=== PATIENT | female | born 1945 | race Caucasian/White ===

== ENCOUNTER 2021-12-28 10:05 | Inpatient (IN) | payer MEDICARE ==
[2021-12-28] MEDS ORDERED: DEXAMETHASONE SOD PHOSPHATE 10 MG/ML 1 ML VIAL IVP STA (10:16)
[2021-12-28] MEDS ORDERED: SODIUM CHLORIDE 0.9% 1,000 ML IV STA (10:17)
[2021-12-28] MEDS ORDERED: BENZONATATE 100 MG CAP PO STA (10:22)
--- NOTE | 2021-12-28 10:24 | ED ---
SOB HPI - General Chief Complaint: Shortness of Breath Stated Complaint: Covid+, ALEX Time Seen by Provider: 12/28/21 10:09 Source: patient, EMS, RN notes reviewed Mode of arrival: EMS Limitations: no limitations - History of Present Illness Initial Comments: This is a 76-year-old female who presents to the emergency department for difficulty breathing. Patient states that she tested positive for COVID at home yesterday. She went to urgent care this morning, and they retested her and also found her to be positive. She has felt ill for the last 2 days, with difficulty breathing, congestion, diarrhea, and fatigue. She does have a history of asthma and has been using her rescue inhaler with little to no relief. She has not struggled with asthma this bad in many years. Symptoms in terms of coughing and difficulty breathing are worse when laying down at night. EMS did give her a Duoneb treatment on route. Denies any fevers, chills, sore throat, palpitations, abdominal pain, nausea, vomiting, diarrhea, back pain, or headaches. MD Complaint: shortness of breath, cough Onset/Timin -: days(s) Known History Of: asthma Treatments Prior to Arrival: bronchodilator - Related Data Home Medications Medication Instructions Recorded Confirmed Cholecalciferol [Vitamin D3 (25 50 mcg PO DAILY 12/28/21 12/28/21 Mcg = 1000 Iu)] Fluticasone Nasal [place] [Flonase 1 spray EA NOSTRIL DAILY 12/28/21 12/28/21 Nasal [place]] Pantoprazole Sodium [Protonix] 40 mg PO DAILY 12/28/21 12/28/21 Pravastatin Sodium [Pravachol] 20 mg PO HS 12/28/21 12/28/21 Sertraline HCl [Zoloft] 50 mg PO DAILY 12/28/21 12/28/21 amLODIPine [Norvasc] 10 mg PO DAILY 12/28/21 12/28/21 hydroCHLOROthiazide [Hydrodiuril] 25 mg PO DAILY 12/28/21 12/28/21 lisinopriL [Prinivil] 10 mg PO DAILY 12/28/21 12/28/21 Allergies Allergy/AdvReac Type Severity Reaction Status Date / Time codeine Allergy Rash/Hives Verified 12/28/21 14:48 Review of Systems ROS Statement: Those systems with pertinent positive or pertinent negative responses have been documented in the HPI. ROS Other: All systems not noted in ROS Statement are negative. Past Medical History Past Medical History: Asthma, Hypertension History of Any Multi-Drug Resistant Organisms: None Reported Past Surgical History: Cholecystectomy, Tonsillectomy, Tubal Ligation Past Psychological History: No Psychological Hx Reported, Anxiety Smoking Status: Never smoker Past Alcohol Use History: None Reported Past Drug Use History: None Reported General Exam Limitations: no limitations General appearance: alert, anxious Head exam: Present: atraumatic, normocephalic, normal inspection Neck exam: Present: normal inspection. Absent: tenderness, meningismus, lymphadenopathy Respiratory exam: Present: decreased breath sounds, prolonged expiratory, other (Labored) Cardiovascular Exam: Present: normal rhythm, tachycardia, normal heart sounds. Absent: systolic murmur, diastolic murmur, rubs, gallop, clicks GI/Abdominal exam: Present: soft, normal bowel sounds. Absent: distended, tenderness, guarding, rebound, rigid Neurological exam: Present: alert, oriented X3, CN II-XII intact Psychiatric exam: Present: normal affect, normal mood Skin exam: Present: warm, dry, intact, normal color. Absent: rash Course Vital Signs 12/28/21 12/28/21 12/28/21 10:06 11:16 11:23 Temperature 98.3 F 99.3 F Pulse Rate 107 H Respiratory 15 20 Rate Blood Pressure 110/56 O2 Sat by Pulse 96 Oximetry 12/28/21 12/28/21 12/28/21 11:26 11:30 12:00 Temperature Pulse Rate 73 73 75 Respiratory 17 14 15 Rate Blood Pressure 110/56 135/76 147/67 O2 Sat by Pulse 97 95 96 Oximetry 12/28/21 12/28/21 12/28/21 13:59 14:09 14:19 Temperature Pulse Rate 70 72 70 Respiratory 18 Rate Blood Pressure 124/71 O2 Sat by Pulse 95 Oximetry Medical Decision Making - Medical Decision Making This is a 76-year-old female who presents to the emergency department for difficulty breathing. Chest x-ray obtained revealing no acute cardiopulmonary process. She was given IV fluids, Decadron, and Tessalon Perles. Her temperature was rechecked and found to be slightly elevated at 99.7F, she was subsequently given a dose of Tylenol. Her d-dimer is mildly elevated, however when this is corrected for her age, it is considered to be within normal limits and no CTA of the chest is indicated. Lab work was otherwise nonactionable. Influenza testing is negative. Patient was given an additional DuoNeb in the emergency department. Patient states that this helped for a couple of minutes, and then her breathing worsened again. While her vital signs have remained fairly stable, she is working very hard to breathe and the breathing is very labored. She also gets out of breath when she tries to speak. Discussed with the patient admission versus discharge home. Patient requests admission for further management of the breathing. Will admit patient to medicine for an asthma exacerbation secondary to COVID-19 with regular breathing treatments and steroids. This case was discussed in detail with the attending ED physician. Presentation, findings, and treatment plan discussed in detail as well. - Lab Data Result diagrams: 12/28/21 10:23 12/28/21 10:23 Lab Results 12/28/21 12/28/21 12/28/21 Range/Units 10:23 10:23 10:23 WBC 4.7 (3.8-10.6) k/uL RBC 5.29 (3.80-5.40) m/uL Hgb 14.7 (11.4-16.0) gm/dL Hct 44.4 (34.0-46.0) % MCV 84.0 (80.0-100.0) fL MCH 27.8 (25.0-35.0) pg MCHC 33.1 (31.0-37.0) g/dL RDW 13.8 (11.5-15.5) % Plt Count 139 L (150-450) k/uL MPV 9.1 Neutrophils % (Manual) 65 % Lymphocytes % (Manual) 18 % Monocytes % (Manual) 16 % Eosinophils % (Manual) 1 % Neutrophils # (Manual) 3.06 (1.3-7.7) k/uL Lymphocytes # (Manual) 0.85 L (1.0-4.8) k/uL Monocytes # (Manual) 0.75 (0-1.0) k/uL Eosinophils # (Manual) 0.05 (0-0.7) k/uL Nucleated RBCs 0 (0-0) /100 WBC Manual Slide Review Performed PT 10.5 (9.0-12.0) sec INR 1.0 (<1.2) APTT 25.1 (22.0-30.0) sec D-Dimer 0.61 H (<0.60) mg/L FEU Sodium 135 L (137-145) mmol/L Potassium 3.9 (3.5-5.1) mmol/L Chloride 102 (98-107) mmol/L Carbon Dioxide 22 (22-30) mmol/L Anion Gap 11 mmol/L BUN 11 (7-17) mg/dL Creatinine 0.68 (0.52-1.04) mg/dL Est GFR (CKD-EPI)AfAm >90 (>60 ml/min/1.73 sqM) Est GFR (CKD-EPI)NonAf 86 (>60 ml/min/1.73 sqM) Glucose 122 H (74-99) mg/dL Plasma Lactic Acid [place] (0.7-2.0) mmol/L Calcium 8.9 (8.4-10.2) mg/dL Total Bilirubin 0.4 (0.2-1.3) mg/dL AST 33 (14-36) U/L ALT 19 (4-34) U/L Alkaline Phosphatase 87 (38-126) U/L Troponin I (0.000-0.034) ng/mL NT-Pro-B Natriuret Pep pg/mL Total Protein 6.5 (6.3-8.2) g/dL Albumin 4.0 (3.5-5.0) g/dL Influenza Type A RNA (Not Detectd) Influenza Type B (PCR) (Not Detectd) 12/28/21 12/28/21 12/28/21 Range/Units 10:23 10:23 10:23 WBC (3.8-10.6) k/uL RBC (3.80-5.40) m/uL Hgb (11.4-16.0) gm/dL Hct (34.0-46.0) % MCV (80.0-100.0) fL MCH (25.0-35.0) pg MCHC (31.0-37.0) g/dL RDW (11.5-15.5) % Plt Count (150-450) k/uL MPV Neutrophils % (Manual) % Lymphocytes % (Manual) % Monocytes % (Manual) % Eosinophils % (Manual) % Neutrophils # (Manual) (1.3-7.7) k/uL Lymphocytes # (Manual) (1.0-4.8) k/uL Monocytes # (Manual) (0-1.0) k/uL Eosinophils # (Manual) (0-0.7) k/uL Nucleated RBCs (0-0) /100 WBC Manual Slide Review PT (9.0-12.0) sec INR (<1.2) APTT (22.0-30.0) sec D-Dimer (<0.60) mg/L FEU Sodium (137-145) mmol/L Potassium (3.5-5.1) mmol/L Chloride (98-107) mmol/L Carbon Dioxide (22-30) mmol/L Anion Gap mmol/L BUN (7-17) mg/dL Creatinine (0.52-1.04) mg/dL Est GFR (CKD-EPI)AfAm (>60 ml/min/1.73 sqM) Est GFR (CKD-EPI)NonAf (>60 ml/min/1.73 sqM) Glucose (74-99) mg/dL Plasma Lactic Acid [place] 1.2 (0.7-2.0) mmol/L Calcium (8.4-10.2) mg/dL Total Bilirubin (0.2-1.3) mg/dL AST (14-36) U/L ALT (4-34) U/L Alkaline Phosphatase (38-126) U/L Troponin I <0.012 (0.000-0.034) ng/mL NT-Pro-B Natriuret Pep 66 pg/mL Total Protein (6.3-8.2) g/dL Albumin (3.5-5.0) g/dL Influenza Type A RNA (Not Detectd) Influenza Type B (PCR) (Not Detectd) 12/28/21 Range/Units 10:23 WBC (3.8-10.6) k/uL RBC (3.80-5.40) m/uL Hgb (11.4-16.0) gm/dL Hct (34.0-46.0) % MCV (80.0-100.0) fL MCH (25.0-35.0) pg MCHC (31.0-37.0) g/dL RDW (11.5-15.5) % Plt Count (150-450) k/uL MPV Neutrophils % (Manual) % Lymphocytes % (Manual) % Monocytes % (Manual) % Eosinophils % (Manual) % Neutrophils # (Manual) (1.3-7.7) k/uL Lymphocytes # (Manual) (1.0-4.8) k/uL Monocytes # (Manual) (0-1.0) k/uL Eosinophils # (Manual) (0-0.7) k/uL Nucleated RBCs (0-0) /100 WBC Manual Slide Review PT (9.0-12.0) sec INR (<1.2) APTT (22.0-30.0) sec D-Dimer (<0.60) mg/L FEU Sodium (137-145) mmol/L Potassium (3.5-5.1) mmol/L Chloride (98-107) mmol/L Carbon Dioxide (22-30) mmol/L Anion Gap mmol/L BUN (7-17) mg/dL Creatinine (0.52-1.04) mg/dL Est GFR (CKD-EPI)AfAm (>60 ml/min/1.73 sqM) Est GFR (CKD-EPI)NonAf (>60 ml/min/1.73 sqM) Glucose (74-99) mg/dL Plasma Lactic Acid [place] (0.7-2.0) mmol/L Calcium (8.4-10.2) mg/dL Total Bilirubin (0.2-1.3) mg/dL AST (14-36) U/L ALT (4-34) U/L Alkaline Phosphatase (38-126) U/L Troponin I (0.000-0.034) ng/mL NT-Pro-B Natriuret Pep pg/mL Total Protein (6.3-8.2) g/dL Albumin (3.5-5.0) g/dL Influenza Type A RNA Not Detected (Not Detectd) Influenza Type B (PCR) Not Detected (Not Detectd) - EKG Data EKG Comments: Sinus tachycardia, left axis deviation, ventricular rate 103 bpm, WI interval 166 ms, QRS duration 71 ms, QTC 382 ms. - Radiology Data Radiology results: report reviewed, image reviewed Disposition Clinical Impression: Asthma exacerbation, COVID-19 Disposition: ADMITTED IP TO THIS HOSP
[2021-12-28 10:55] LABS: HCT 44.4 % (34.0-46.0); HGB 14.7 gm/dL (11.4-16.0); MCH 27.8 pg (25.0-35.0); MCHC 33.1 g/dL (31.0-37.0); Mean Platelet Volume 9.1; Platelet Count 139 k/uL (150-450); RBC 5.29 m/uL (3.80-5.40); RDW 13.8 % (11.5-15.5); WBC 4.7 k/uL (3.8-10.6)
--- NOTE | 2021-12-28 11:05 | XR ---
EXAMINATION TYPE: XR chest 2V DATE OF EXAM: 12/28/2021 COMPARISON: NONE HISTORY: Difficulty in breathing. TECHNIQUE: Frontal and lateral views of the chest are obtained. FINDINGS: Bilateral mild chronic parenchymal changes but present bilaterally. There is no suspicious focal air space opacity, pleural effusion, or pneumothorax seen. The cardiac silhouette size is with in normal limits. Retrocardiac opacity suspicious for small moderate size hiatal hernia is noted. Cho lecystectomy clips are seen. The osseous structures are intact. IMPRESSION: No acute cardiopulmonary process.
[2021-12-28 11:11] LABS: Partial Thromboplastin Time 25.1 sec (22.0-30.0); Prothrombin Time 10.5 sec (9.0-12.0)
[2021-12-28 11:12] LABS: ALT 19 U/L (4-34); AST 33 U/L (14-36); African American GFR (CKD) >90 (>60 ml/min/1.73 sqM); Alkaline Phosphatase 87 U/L (38-126); Anion Gap 11 mmol/L; Blood Urea Nitrogen 11 mg/dL (7-17); Calcium 8.9 mg/dL (8.4-10.2); Carbon Dioxide 22 mmol/L (22-30); Chloride 102 mmol/L (98-107); Glucose 122 mg/dL (74-99); Non-African American GFR(CKD) 86 (>60 ml/min/1.73 sqM); Potassium 3.9 mmol/L (3.5-5.1); Sodium 135 mmol/L (137-145); Total Bilirubin 0.4 mg/dL (0.2-1.3); Total Protein 6.5 g/dL (6.3-8.2)
[2021-12-28] MEDS ORDERED: ACETAMINOPHEN TAB 325 MG TAB PO STA (11:20)
[2021-12-28 11:26] LABS: Eosinophils # (M) 0.05 k/uL (0-0.7); Lymphocytes # (M) 0.85 k/uL (1.0-4.8); Monocytes # (M) 0.75 k/uL (0-1.0); Neutrophils # (M) 3.06 k/uL (1.3-7.7); Neutrophils % (M) 65 %; Nucleated Red Blood Cells 0 /100 WBC (0-0); Total Cells Counted 100
[2021-12-28] MEDS ORDERED: IPRATROPIUM-ALBUTEROL 3 ML NEB INHALATION STA (11:30)
[2021-12-28] MEDS ORDERED: KETOROLAC 15 MG/ML 1 ML VIAL IVP PRN (15:01)
[2021-12-28] MEDS ORDERED: ONDANSETRON 4 MG/2 ML VIAL IVP PRN (15:01)
[2021-12-28] MEDS ORDERED: NALOXONE 0.4 MG/ML 1 ML VIAL IV PRN (15:01)
[2021-12-28] MEDS ORDERED: IBUPROFEN 400 MG TAB PO PRN (15:01)
[2021-12-28] MEDS ORDERED: ACETAMINOPHEN TAB 325 MG TAB PO PRN (15:01)
[2021-12-28] MEDS: SERTRALINE 50 MG TAB PO SCH (18:33)
[2021-12-28] MEDS: PRAVASTATIN SODIUM 20 MG TAB PO SCH (20:48)
[2021-12-29] MEDS ORDERED: DEXTROSE 50% SYRINGE 50 ML IVP PRN ×4 (02:53→07:13)
[2021-12-29] MEDS ORDERED: IPRATROPIUM-ALBUTEROL 3 ML NEB INHALATION PRN (03:04)
--- NOTE | 2021-12-29 03:11 | P.HPIM ---
History of Present Illness This is a pleasant 76 years old female with past medical history of hypertension and asthma. Patient says she has history of asthma for the past 20 years. Presents because of worsening dyspnea over the last 2 days associated with c oughing and white phlegm No chest pain, abdominal pain or vomiting No urinary complaints, no headache, weakness or numbness She denies smoking, alcohol or illicit tracts Patient states she's been tested positive for covid yesterday at her home Vitals show asymptomatic bradycardia during sleep. Heart rate drops to 45. Afebrile Labs show an unremarkable CBC, INR, BMP and liver enzymes. Troponin is negative. ProBNP is low. Influenza is negative. D-dimer 0.61 which is adjusted for age it will be within the reference range and not elevated. EKG showing sinus tachycardia at [address]-T abnormality. Chest x-ray: No acute process. In the emergency room patient received dexamethasone and, steroids and breathing treatment. Review of Systems Review of systems CONSTITUTIONAL: No fever, no malaise, no fatigue. HEENT: No recent visual problems or hearing problems. Denied any sore throat. CARDIOVASCULAR: No orthopnea, PND, no palpitations, no syncope. PULMONARY: No chest wall tenderness, no hemoptysis. GASTROINTESTINAL: No diarrhea, no nausea, no vomiting, no abdominal pain. Normoactive bowel sounds. NEUROLOGICAL: No headaches, no weakness, no numbness. HEMATOLOGICAL: Denies any bleeding or petechiae. GENITOURINARY: Denies any burning micturition, frequency, or urgency. MUSCULOSKELETAL/RHEUMATOLOGICAL: Denies any joint pain, swelling, or any muscle pain. ENDOCRINE: Denies any polyuria or polydipsia. Past Medical History Past Medical History: Asthma, Hypertension History of Any Multi-Drug Resistant Organisms: None Reported Past Surgical History: Cholecystectomy, Tonsillectomy, Tubal Ligation Past Psychological History: No Psychological Hx Reported, Anxiety Smoking Status: Never smoker Past Alcohol Use History: None Reported Past Drug Use History: None Reported Medications and Allergies Home Medications Medication Instructions Recorded Confirmed Type Cholecalciferol [Vitamin D3 (25 50 mcg PO DAILY 12/28/21 12/28/21 History Mcg = 1000 Iu)] Fluticasone Nasal [place] [Flonase 1 spray EA NOSTRIL DAILY 12/28/21 12/28/21 History Nasal [place]] Pantoprazole Sodium [Protonix] 40 mg PO DAILY 12/28/21 12/28/21 History Pravastatin Sodium [Pravachol] 20 mg PO HS 12/28/21 12/28/21 History Sertraline HCl [Zoloft] 50 mg PO DAILY 12/28/21 12/28/21 History amLODIPine [Norvasc] 10 mg PO DAILY 12/28/21 12/28/21 History hydroCHLOROthiazide [Hydrodiuril] 25 mg PO DAILY 12/28/21 12/28/21 History lisinopriL [Prinivil] 10 mg PO DAILY 12/28/21 12/28/21 History Allergies Allergy/AdvReac Type Severity Reaction Status Date / Time codeine Allergy Rash/Hives Verified 12/28/21 17:13 Physical Exam Vitals: Vital Signs Temp Pulse Resp BP Pulse Ox 12/28/21 16:00 71 20 126/66 92 L 12/28/21 15:30 75 21 111/57 92 L 12/28/21 15:00 74 18 124/71 12/28/21 14:30 73 18 124/71 96 12/28/21 14:19 70 12/28/21 14:09 72 12/28/21 14:00 69 20 130/73 94 L 12/28/21 13:59 70 18 124/71 95 12/28/21 13:30 70 16 117/73 94 L 12/28/21 13:00 72 17 127/64 96 12/28/21 12:30 72 18 132/69 90 L 12/28/21 12:00 75 15 147/67 96 12/28/21 11:30 73 14 135/76 95 12/28/21 11:26 73 17 110/56 97 12/28/21 11:23 99.3 F 12/28/21 11:16 20 12/28/21 10:06 98.3 F 107 H 15 110/56 96 Intake and Output 12/28/21 12/28/21 12/28/21 06:59 14:59 22:59 Other: Weight 74.843 kg GENERAL: The patient is alert and oriented x3, not in any acute distress. Well developed, well nourished. HEENT: Pupils are round and equally reacting to light. EOMI. No scleral icterus. No conjunctival pallor. Normocephalic, atraumatic. No pharyngeal erythema. No thyromegaly. CARDIOVASCULAR: S1 and S2 present. No murmurs, rubs, or gallops. -PULMONARY: Chest is clear to auscultation, bilateral expiratory wheezing . No crackles. ABDOMEN: Soft, nontender, nondistended, normoactive bowel sounds. No palpable organomegaly. MUSCULOSKELETAL: No joint swelling or deformity. EXTREMITIES: No cyanosis, clubbing, or pedal edema. NEUROLOGICAL: Gross neurological examination did not reveal any focal deficits. SKIN: No rashes. no petechiae. Results CBC & Chem 7: 12/28/21 10:23 12/28/21 10:23 Labs: Abnormal Lab Results - Last 24 Hours (Table) 12/28/21 12/28/21 12/28/21 Range/Units 10: 10: 10:23 Plt Count 139 L (150-450) k/uL Lymphocytes # (Manual) 0.85 L (1.0-4.8) k/uL D-Dimer 0.61 H (<0.60) mg/L FEU Sodium 135 L (137-145) mmol/L Glucose 122 H (74-99) mg/dL Assessment and Plan Assessment: Acute asthma exacerbation Possible Covid infection per patient Asymptomatic bradycardia Hypertension Obesity with BMI of 31.2. Plan: Check Covid swab Check inflammatory markers Consult pulmonary services. Bronchodilators Check TSH Labs and medication were reviewed.. Continue same treatment. Continue with symptomatic treatment. Resume home medication. Monitor lytes and vitals. DVT and GI prophylaxis. Further recommendations as per clinical course of the patient DVT prophylaxis: Subcutaneous ( GI Prophylaxis: Pepcid PT/OT: Pending Prognosis is guarded
[2021-12-29] MEDS: PANTOPRAZOLE 40 MG TABLET PO SCH (06:44)
[2021-12-29] MEDS: INSULIN ASPART (NovoLOG) 100 UNIT/ML VIAL SQ SCH ×5 (06:45→22:31)
[2021-12-29] MEDS ORDERED: methylPREDNISolone SOD SUCCI 40 MG/ML 1 ML VIAL IV SCH (08:00)
[2021-12-29 08:59] LABS: Glucose,Whole Blood 108 mg/dL (70-110)
[2021-12-29] MEDS ORDERED: CHOLECALCIFEROL 25 MCG (1000 IU) TABLET PO SCH (09:00)
[2021-12-29] MEDS: hydroCHLOROthiazide 25 MG TAB PO SCH (09:43)
[2021-12-29] MEDS: FLUTICASONE 50MCG/SPRAY NASAL 16GM EA NOSTRIL SCH (09:43)
[2021-12-29] MEDS: SERTRALINE 50 MG TAB PO SCH (09:43)
[2021-12-29] MEDS: amLODIPine 10 MG TAB PO SCH (09:43)
[2021-12-29] MEDS: lisinopriL 10 MG TAB PO SCH (09:43)
[2021-12-29 11:03] LABS: African American GFR (CKD) 104.1 (60.0-200.0); Anion Gap 7.6 mmol/L (10.00-18.00); BUN/Creat Ratio 20.33 Ratio (12.00-20.00); Blood Urea Nitrogen 12.2 mg/dL (9.0-27.0); C Reactive Protein 0.4 mg/dL (0.00-0.80); Calcium 8.8 mg/dL (8.7-10.3); Carbon Dioxide 25.4 mmol/L (20.0-27.5); Non-African American GFR(CKD) 89.8 (60.0-200.0); Potassium 4.1 mmol/L (3.5-5.5)
[2021-12-29 11:52] LABS: Glucose,Whole Blood 113 mg/dL (70-110)
--- NOTE | 2021-12-29 12:03 | P.CNPUL ---
History of Present Illness Consult date: 12/29/21 Reason for consult: dyspnea, asthma History of present illness: 76-year-old female patient, known history of asthma, tested positive for Covid 19. The patient presented to the hospital because of worsening shortness of breath of 2 days' duration addition to some cough and congestion. No chest pain. No nausea or vomiting or abdominal pain. No altered mentation. No headaches. The patient's generalized body aches symptoms. She has been also feeling fatigued and tired. The vitals were all stable at the time of admission. The patient was afebrile. Blood work was done in emergency. D- dimer was at 0.61. Influenza screen was negative. The rest of the blood work including CBC and complete metabolic profile were negative. Coagulation profile was normal. The cardiac enzymes are also negative. The chest x-ray showed no acute cardiopulmonary process. The patient has a pulse ox of 97% on room air, 99% liters of oxygen by nasal cannula. She is relatively bradycardic with a heart rate of 46-54, asymptomatic. She is normotensive. She was given Decadron in the emergency department. Note that she had asthma as comorbid conditions in addition to hypertension. She is a lifetime nonsmoker. The patient has no maintenance respiratory medication for asthma. She uses Ventolin on an as- needed basis. She has been vaccinated 2 for Covid 19 and she has not received any of the booster shots. Review of Systems Constitutional: Reports fatigue, Reports weakness Eyes: denies as per HPI, denies blurred vision, denies bulging eye, denies decreased vision, denies diplopia, denies discharge, denies dry eye, denies irritation, denies itching, denies pain, denies photophobia, denies loss of peripheral vision, denies loss of vision, denies tunnel vision/blind spots Ears: deny: decreased hearing, ear discharge, earache, tinnitus Ears, nose, mouth and throat: Reports as per HPI Breasts: absent: as per HPI, change in shape, gynecomastia, masses, nipple discharge, pain, skin changes, swelling Cardiovascular: Reports decreased exercise tolerance, Reports dyspnea on exertion Respiratory: Reports congestion, Reports cough, Reports dyspnea Gastrointestinal: Reports as per HPI, Reports loss of appetite Genitourinary: Reports as per HPI Menstruation: Reports as per HPI Musculoskeletal: Reports as per HPI Musculoskeletal: absent: ankle pain, ankle stiffness, ankle swelling Integumentary: Reports as per HPI Neurological: Reports as per HPI Psychiatric: Reports as per HPI Endocrine: Reports as per HPI Hematologic/Lymphatic: Reports as per HPI Allergic/Immunologic: Reports as per HPI Past Medical History Past Medical History: Asthma, Hyperlipidemia, Hypertension History of Any Multi-Drug Resistant Organisms: None Reported Past Surgical History: Cholecystectomy, Tonsillectomy, Tubal Ligation Past Psychological History: No Psychological Hx Reported, Anxiety Smoking Status: Never smoker Past Alcohol Use History: None Reported Past Drug Use History: None Reported Medications and Allergies Home Medications Medication Instructions Recorded Confirmed Type Cholecalciferol [Vitamin D3 (25 50 mcg PO DAILY 12/28/21 12/28/21 History Mcg = 1000 Iu)] Fluticasone Nasal [place] [Flonase 1 spray EA NOSTRIL DAILY 12/28/21 12/28/21 History Nasal [place]] Pantoprazole Sodium [Protonix] 40 mg PO DAILY 12/28/21 12/28/21 History Pravastatin Sodium [Pravachol] 20 mg PO HS 12/28/21 12/28/21 History Sertraline HCl [Zoloft] 50 mg PO DAILY 12/28/21 12/28/21 History amLODIPine [Norvasc] 10 mg PO DAILY 12/28/21 12/28/21 History hydroCHLOROthiazide [Hydrodiuril] 25 mg PO DAILY 12/28/21 12/28/21 History lisinopriL [Prinivil] 10 mg PO DAILY 12/28/21 12/28/21 History Allergies Allergy/AdvReac Type Severity Reaction Status Date / Time codeine Allergy Rash/Hives Verified 12/28/21 17:13 Physical Exam Vitals: Vital Signs Temp Pulse Pulse Resp BP BP Pulse Ox 12/29/21 10:00 97.6 F 54 L 15 129/65 97 12/29/21 08:00 97.6 F 46 L 17 129/65 99 12/29/21 06:46 97.7 F 47 L 17 124/57 96 12/29/21 01:47 97.5 F L 51 L 16 106/57 98 12/28/21 22:36 97.7 F 45 L 16 109/65 93 L 12/28/21 19:31 97.5 F L 46 L 16 129/69 100 12/28/21 17:29 97.6 F 12/28/21 16:59 57 L 15 122/72 97 12/28/21 16:00 71 20 126/66 92 L 12/28/21 15:30 75 21 111/57 92 L 12/28/21 15:00 74 18 124/71 12/28/21 14:30 73 18 124/71 96 12/28/21 14:19 70 12/28/21 14:09 72 12/28/21 14:00 69 20 130/73 94 L 12/28/21 13:59 70 18 124/71 95 12/28/21 13:30 70 16 117/73 94 L 12/28/21 13:00 72 17 127/64 96 12/28/21 12:30 72 18 132/69 90 L 12/28/21 12:00 75 15 147/67 96 Intake and Output 12/28/21 12/29/21 12/29/21 22:59 06:59 14:59 Intake Total 120 480 Balance 120 480 Intake: Oral 120 480 Other: # Voids 1 4 # Bowel Movements 1 Weight 74.843 kg The patient appeared well nourished and normally developed. Vital signs as documented. Head exam is unremarkable. No scleral icterus or corneal arcus noted. Neck is without jugular venous distension, thyromegaly, or carotid bruits. Carotid upstrokes are brisk bilaterally. Lungs are diminished bilaterally along with diminished breath on the lung bases both anteriorly and posteriorly and there is prolongation of the exhalation phase of breathing and diffuse exhalation wheezing. Cardiac exam reveals the PMI to be normally sized and situated. Rhythm is regular. First and second heart sounds normal. No murmurs, rubs or gallops. Abdominal exam reveals normal bowel sounds, no masses, no organomegaly and no aortic enlargement. Extremities are nonedematous and bot h femoral and pedal pulses are normal.Examination of the skin revealed no evidence of significant rashes, suspicious appearing nevi or other concerning lesions.Neurologically, the patient is awake and alert and the patient does not have any focal neurological deficit. Cranial nerves are essentially intact. Results - Laboratory Findings CBC and BMP: 12/28/21 10:23 12/29/21 07:12 PT/INR, D-dimer PT 10.5 sec (9.0-12.0) 12/28/21 10:23 INR 1.0 (<1.2) 12/28/21 10:23 D-Dimer 0.61 mg/L FEU (<0.60) H 12/28/21 10:23 Abnormal lab findings: Abnormal Labs 12/28/21 12/28/21 12/28/21 10:23 10:23 10:23 Plt Count 139 L Lymphocytes # (Manual) 0.85 L D-Dimer 0.61 H Sodium 135 L Anion Gap BUN/Creatinine Ratio Glucose 122 H POC Glucose (mg/dL) TSH Coronavirus (PCR) 12/29/21 12/29/21 12/29/21 05:40 07:12 11:47 Plt Count Lymphocytes # (Manual) D-Dimer Sodium Anion Gap 7.60 L BUN/Creatinine Ratio 20.33 H Glucose POC Glucose (mg/dL) 113 H TSH 0.270 L Coronavirus (PCR) Detected A - Diagnostic Findings Chest x-ray: image reviewed Assessment and Plan Plan: Acute asthma exacerbation with secondary shortness of breath. The patient is actively bronchospastic and wheezy and her shortness of breath is essentially related to asthma exacerbation. The trigger for her asthma exacerbations the Covid 19 infection Acute Covid 19 infection, no clear indication for pneumonia. The patient's oxygenation is within normal limits. She has received 2 shots of vaccine which, [employer] and she did not receive any subsequent boosters. Symptom onset was around 2 days ago Shortness of breath secondary to above Cough secondary to above Hypertension Hyperlipidemia Sinus bradycardia, asymptomatic Plan Put the patient on albuterol HFA 2 puffs 4 times a day and Symbicort maintenance 2 puffs twice a day The patient on IV Solu-Medrol 60 mg every 6 hours optimizer asthma exacerbation Check inflammatory markers regarding the Covid 19 infection including LDH and CRP Check d-dimer is was low right Moderate oxygenation, currently on room air oxygen with a pulse ox of 97% Resume all medications Vitamin C and vitamin D and zinc Lovenox portably prophylaxis on heparin subcu portably prophylaxis Echocardiogram regarding the underlying cardiac rhythm We'll continue to follow
[2021-12-29] MEDS: ASCORBIC ACID 500 MG TAB PO SCH (12:31)
[2021-12-29] MEDS: ZINC SULFATE 220 MG CAP PO SCH (12:31)
[2021-12-29] MEDS ORDERED: ERGOCALCIFEROL 1,250 MCG (50,000 IU) CAPSULE PO SCH (13:00)
--- NOTE | 2021-12-29 13:10 | P.CRDCN ---
History of Present Illness History of present illness: HISTORY OF PRESENTING ILLNESS This is a pleasant 76-year-old female past medical history significant for hypertension, asthma, dyslipidemia, mild non-obstructive coronary artery disease (per patient cardiac cath this year in [facility]). She followed with Dr. Altaf Walls in [place], [place]. She lived in [place] for 13 years recently moved back to [place]. We have been asked to see in consultation for bradycardia. Patient presented to the hospital on 12/28/2021 with complaints of worsening shortness of breath, cough, congestion. She tested positive for COVID-19 at home. Symptoms started about 2 days ago. She also has been having generalized body aches, fatigue. She was vaccinated x 2, no booster shots. She denies any chest pain, lightheadedness, dizziness, palpitations, syncope or near syncope. She denies any history of [place], Stroke, seizure, diabetes. She is a non-smoker. Patient's vital signs documented with HR 46-50s, at bedside patient HR 56-60s, no EKG at this time besides the one on admission that revealed sinus tachycardia. She has been weaned to room air. She states this year in [place] she had an episode of bradycardia and was admitted for 24 hours for telemetry monitoring, she states her HR were in the 20s and they improved. All workup was normal the patient states. She also said this year in [place] she had episode of chest discomfort, she presented initially to her PCP which was Dr. Bharti Ayon and recommended evaluation in the ER. She ultimately underwent a cardiac catheterization which she was told was relatively normal with minor blockages, no stenting performed. DIAGNOSTICS * EKG on admission revealed sinus tachycardia, heart rate 103, T wave inversion in lead V2 * Chest xray no acute cardiopulmonary process, no heart failure or pneumonia noted. * Laboratory reviewed, platelets 139, d-dimer 0.6, sodium 138, potassium 4.1, BUN 0.2, serum creatinine 0.6, troponin negative, proBNP 66, covid 19 positive, TSH 0.27, free T4 1.04 * Current home cardiac medications include amlodipine 10 mg daily, pravastatin 20 mg nightly, hydrochlorothiazide 25 mg daily, lisinopril 10 mg daily REVIEW OF SYSTEMS At the time of my exam: CONSTITUTIONAL: Denies fever or chills.+generalized aches and fatigue CARDIOVASCULAR: Denies chest pain, +shortness of breath,Denies orthopnea, PND or palpitations. RESPIRATORY: +cough. GASTROINTESTINAL: Denies abdominal pain, diarrhea, constipation, nausea or vomiting. MUSCULOSKELETAL: Denies myalgias. NEUROLOGIC: Denies numbness, tingling, headacbe or weakness. ENDOCRINE: Denies fatigue, weight change, polydipsia or polyurina. GENITOURINARY: Denies burning, hematuria or urgency with micturation. HEMATOLOGIC: Denies history of anemia or bleeding. PHYSICAL EXAMINATION Blood pressure 129/65, heart rate 54, afebrile, oxygen saturation is 97% on room air CONSTITUTIONAL: No apparent distress. HEENT: Head is normocephalic. Pupils are equal, round. Sclerae anicteric. Mucous membranes of the mouth are moist. No JVD. No carotid bruit. CHEST EXAMINATION: Lungs are clear to auscultation. No chest wall tenderness is noted on palpation or with deep breathing. HEART EXAMINATION: Regular rate and rhythm. S1, S2 heard. No murmurs, gallops or rub. ABDOMEN: Soft, nontender. Positive bowel sounds. EXTREMITIES: 2+ peripheral pulses, no lower extremity edema and no calf tenderness. NEUROLOGIC EXAMINATION: Patient is awake, alert and oriented x3. ASSESSMENT Sinus bradycardia, asymptomatic Covid-19 infection Asthma exacerbation Shortness of breath Mild non-obstructive coronary artery disease (per patient cardiac cath this year in [facility]) Hypertension Dyslipidemia PLAN Place patient on cardiac telemetry Obtain EKG Continue home antihypertensive medications Obtain 2D echocardiogram and doppler study to assess cardiac structure and function. Will try to obtain records from [place]. Further recommendations based on clinical course Nurse practitioner note has been reviewed by physician. Signing provider agrees with the documented findings, assessment, and plan of care. Past Medical History Past Medical History: Asthma, Hypertension History of Any Multi-Drug Resistant Organisms: None Reported Past Surgical History: Cholecystectomy, Tonsillectomy, Tubal Ligation Past Psychological History: No Psychological Hx Reported, Anxiety Smoking Status: Never smoker Past Alcohol Use History: None Reported Past Drug Use History: None Reported Medications and Allergies Home Medications Medication Instructions Recorded Confirmed Type Cholecalciferol [Vitamin D3 (25 50 mcg PO DAILY 12/28/21 12/28/21 History Mcg = 1000 Iu)] Fluticasone Nasal [place] [Flonase 1 spray EA NOSTRIL DAILY 12/28/21 12/28/21 History Nasal [place]] Pantoprazole Sodium [Protonix] 40 mg PO DAILY 12/28/21 12/28/21 History Pravastatin Sodium [Pravachol] 20 mg PO HS 12/28/21 12/28/21 History Sertraline HCl [Zoloft] 50 mg PO DAILY 12/28/21 12/28/21 History amLODIPine [Norvasc] 10 mg PO DAILY 12/28/21 12/28/21 History hydroCHLOROthiazide [Hydrodiuril] 25 mg PO DAILY 12/28/21 12/28/21 History lisinopriL [Prinivil] 10 mg PO DAILY 12/28/21 12/28/21 History Allergies Allergy/AdvReac Type Severity Reaction Status Date / Time codeine Allergy Rash/Hives Verified 12/28/21 17:13 Physical Exam Vitals: Vital Signs Temp Pulse Pulse Resp BP BP Pulse Ox 12/29/21 10:00 97.6 F 54 L 15 129/65 97 12/29/21 08:00 97.6 F 46 L 17 129/65 99 12/29/21 06:46 97.7 F 47 L 17 124/57 96 12/29/21 01:47 97.5 F L 51 L 16 106/57 98 12/28/21 22:36 97.7 F 45 L 16 109/65 93 L 12/28/21 19:31 97.5 F L 46 L 16 129/69 100 12/28/21 17:29 97.6 F 12/28/21 16:59 57 L 15 122/72 97 12/28/21 16:00 71 20 126/66 92 L 12/28/21 15:30 75 21 111/57 92 L 12/28/21 15:00 74 18 124/71 12/28/21 14:30 73 18 124/71 96 12/28/21 14:19 70 12/28/21 14:09 72 12/28/21 14:00 69 20 130/73 94 L 12/28/21 13:59 70 18 124/71 95 12/28/21 13:30 70 16 117/73 94 L 12/28/21 13:00 72 17 127/64 96 12/28/21 12:30 72 18 132/69 90 L Intake and Output 12/28/21 12/29/21 12/29/21 22:59 06:59 14:59 Intake Total 120 480 Balance 120 480 Intake: Oral 120 480 Other: # Voids 1 4 # Bowel Movements 1 Weight 74.843 kg Results 12/28/21 10:23 12/29/21 07:12 Cardiac Enzymes 12/29/21 Range/Units 07:12 Lactate Dehydrogenase 145 (120-246) U/L Comprehensive Metabolic Panel 12/29/21 Range/Units 07:12 Sodium 138 (135-145) mmol/L Potassium 4.1 (3.5-5.5) mmol/L Chloride 105 (96-109) mmol/L Carbon Dioxide 25.4 (20.0-27.5) mmol/L BUN 12.2 (9.0-27.0) mg/dL Creatinine 0.6 (0.6-1.5) mg/dL Glucose 104 (70-110) mg/dL Calcium 8.8 (8.7-10.3) mg/dL Current Medications Generic Name Dose Route Start Last Admin Trade Name Freq PRN Reason Stop Dose Admin Acetaminophen 650 mg 12/28/21 15:01 Acetaminophen Tab 325 Mg Tab PO Q6HR PRN Mild Pain or Fever > 100.5 Albuterol Sulfate 1 puff 12/29/21 16:00 Albuterol Hfa Inhaler INHALATION RT-QID EMELI Amlodipine Besylate 10 mg 12/29/21 09:00 12/29/21 09:43 Amlodipine 10 Mg Tab PO 10 mg DAILY EMELI Administration Budesonide/Formoterol Fumarate 2 puff 12/29/21 20:00 Symbicort 160-4.5 Mcg Inhaler INHALATION RT-BID EMELI Cholecalciferol 50 mcg 12/29/21 09:00 12/29/21 09:43 Cholecalciferol 25 Mcg (1000 Iu) Tablet PO 50 mcg DAILY EMELI Administration Dextrose/Water 25 ml 12/29/21 02:53 Dextrose 50% Syringe 50 Ml IVP PER PROTOCOL PRN Hypoglycemia Protocol Dextrose/Water 50 ml 12/29/21 02:53 Dextrose 50% Syringe 50 Ml IVP PER PROTOCOL PRN Hypoglycemia Protocol Dextrose/Water 25 ml 12/29/21 07:13 Dextrose 50% Syringe 50 Ml IVP PER PROTOCOL PRN Hypoglycemia Protocol Dextrose/Water 50 ml 12/29/21 07:13 Dextrose 50% Syringe 50 Ml IVP PER PROTOCOL PRN Hypoglycemia Protocol Fluticasone Propionate 1 spray 12/29/21 09:00 12/29/21 09:43 Fluticasone 50mcg/[place] Nasal 16gm EA NOSTRIL 1 spray DAILY EMELI Administration Hydrochlorothiazide 25 mg 12/29/21 09:00 12/29/21 09:43 Hydrochlorothiazide 25 Mg Tab PO 25 mg DAILY EMELI Administration Ibuprofen 400 mg 12/28/21 15:01 12/28/21 20:48 Ibuprofen 400 Mg Tab PO 400 mg Q6HR PRN Administration Mild Pain or Fever > 100.5 Insulin Aspart 0 unit 12/29/21 07:30 12/29/21 12:01 Insulin Aspart (Novolog) 100 Unit/Ml Vial SQ Not Given ACHS [facility] Protocol Ketorolac Tromethamine 15 mg 12/28/21 15:01 12/28/21 16:55 Ketorolac 15 Mg/Ml 1 Ml Vial IVP 12/31/21 15:02 15 mg Q6HR PRN Administration Moderate Pain (Scale 4 to 6) Lisinopril 10 mg 12/29/21 09:00 12/29/21 09:43 Lisinopril 10 Mg Tab PO 10 mg DAILY EMELI Administration Methylprednisolone Sodium Succinate 60 mg 12/29/21 18:00 Methylprednisolone Sod Succi 40 Mg/Ml 1 Ml Vial IV Q6HR EMELI Naloxone HCl 0.2 mg 12/28/21 15:01 Naloxone 0.4 Mg/Ml 1 Ml Vial IV Q2M PRN Opioid Reversal Ondansetron HCl 4 mg 12/28/21 15:01 Ondansetron 4 Mg/2 Ml Vial IVP Q8HR PRN Nausea And Vomiting Pantoprazole Sodium 40 mg 12/29/21 07:30 12/29/21 06:44 Pantoprazole 40 Mg Tablet PO 40 mg [id number] EMELI Administration Pravastatin Sodium 20 mg 12/28/21 21:00 12/28/21 20:48 Pravastatin Sodium 20 Mg Tab PO 20 mg HS EMELI Administration Sertraline HCl 50 mg 12/28/21 18:15 12/29/21 09:43 Sertraline 50 Mg Tab PO 50 mg DAILY EMELI Administration Intake and Output 12/28/21 12/29/21 12/29/21 22:59 06:59 14:59 Intake Total 120 480 Balance 120 480 Intake: Oral 120 480 Other: # Voids 1 4 # Bowel Movements 1 Weight 74.843 kg 12/28/21 10:23 12/29/21 07:12
[2021-12-29] MEDS: ALBUTEROL HFA INHALER INHALATION SCH ×2 (15:52→20:17)
[2021-12-29 16:52] LABS: Glucose,Whole Blood 154 mg/dL (70-110)
--- NOTE | 2021-12-29 17:00 | CA ---
Transthoracic Echo Report Name: Carlene Yuan Age: 76 Gender: F : 1945 Exam Date: 12/29/2021 13:51 Exam Location: [place] [facility] Ht (in): Wt (lb): Ordering Physician: Janel Dias Attending/Referring Phys: Retread Technician Roro Nolna, JOAO Procedure CPT: Indications: LV function, bradycardia Cardiac Hx: Pt is COVID POSITIVE. Technical Quality: Contrast 1: Total Dose (mL): Contrast 2: N/A Total Dose (mL): MEASUREMENTS (Male / Female) Normal Values 2D ECHO LV Diastolic Diameter PLAX 4.2 cm 4.2 - 5.9 / 3.9 - 5.3 cm LV Systolic Diameter PLAX 3.6 cm IVS Diastolic Thickness 1.1 cm 0.6 - 1.0 / 0.6 - 0.9 cm LVPW Diastolic Thickness 1.1 cm 0.6 - 1.0 / 0.6 - 0.9 cm LV Relative Wall Thickness 0.5 RV Internal Dim ED PLAX 3.1 cm LA Systolic Diameter LX 3.1 cm 3.0 - 4.0 / 2.7 - 3.8 cm DOPPLER TR Peak Velocity 283.2 cm/s TR Peak Gradient 32.1 mmHg Right Ventricular Systolic Press 37.1 mmHg FINDINGS Left Ventricle Mildly increased septal wall thickness. Mildly increased posterior wall thickness. Left ventricular ejection fraction is estimated at 50-55%. Right Ventricle Normal right ventricular size and function. Mild pulmonary hypertension. Right Atrium Normal right atrial size. Left Atrium Normal left atrial size. Mitral Valve Structurally normal mitral valve. Mild mitral regurgitation. Aortic Valve Trileaflet aortic valve. Tricuspid Valve Structurally normal tricuspid valve. Mild tricuspid regurgitation. Pulmonic Valve Structurally normal pulmonic valve. Pericardium Normal pericardium. Aorta Normal size aortic root and proximal ascending aorta. CONCLUSIONS Normal LV systolic function Mild mitral regurgitation Previewed by: Dr. Tello Gustafson MD (Electronically Signed) Final Date: 29 December 2021 17:00
[2021-12-29] MEDS: methylPREDNISolone SOD SUCCI 125 MG/2 ML VIAL IV SCH ×2 (18:01→23:01)
[2021-12-29] MEDS: SYMBICORT 160-4.5 MCG INHALER INHALATION SCH (20:17)
[2021-12-29 20:39] LABS: Glucose,Whole Blood 179 mg/dL (70-110)
[2021-12-29] MEDS: PRAVASTATIN SODIUM 20 MG TAB PO SCH (22:31)
--- NOTE | 2021-12-29 23:29 | P.PN ---
Subjective This is a pleasant 76 years old female with past medical history of hypertension and asthma. Patient says she has history of asthma for the past 20 years. Presents because of worsening dyspnea over the last 2 days associated with coughing and white phlegm No chest pain, abdominal pain or vomiting No urinary complaints, no headache, weakness or numbness She denies smoking, alcohol or illicit tracts Patient states she's been tested positive for covid yesterday at her home Vitals show asymptomatic bradycardia during sleep. Heart rate drops to 45. Afebrile Labs show an unremarkable CBC, INR, BMP and liver enzymes. Troponin is negative. ProBNP is low. Influenza is negative. D-dimer 0.61 which is adjusted for age it will be within the reference range and not elevated. EKG showing sinus tachycardia at [address]-T abnormality. Chest x-ray: No acute process. In the emergency room patient received dexamethasone and, steroids and breathing treatment. 12/29/2021 Patient presents [place] improvement, while she is on IV Solu-Medrol 60 mg. She has minimal cough and no chest pain Pulmonary team on the case, We will check inflammatory markers for Covid infection, no evidence of pneumonia. She has asymptomatic bradycardia with heart rate 40 to 50s, cardiology was consulted. Echocardiogram showed ejection fraction 50-55% Objective - Vital Signs Vital signs: Vital Signs Temp 97.6 F 12/29/21 10:00 Pulse 54 L 12/29/21 10:00 Resp 15 12/29/21 10:00 BP 129/65 12/29/21 10:00 Pulse Ox 97 12/29/21 10:00 FiO2 Intake & Output 12/28/21 12/29/21 12/29/21 18:59 06:59 18:59 Intake Total 600 Balance 600 Weight 74.843 kg Intake: Oral 600 Other: # Voids 4 # Bowel Movements 1 - Exam GENERAL: The patient is alert and oriented x3, not in any acute distress. Well developed, well nourished. HEENT: Pupils are round and equally reacting to light. EOMI. No scleral icterus. No conjunctival pallor. Normocephalic, atraumatic. No pharyngeal erythema. No thyromegaly. CARDIOVASCULAR: S1 and S2 present. No murmurs, rubs, or gallops. -PULMONARY: Chest is clear to auscultation, bilateral scattered wheezing or crackles. ABDOMEN: Soft, nontender, nondistended, normoactive bowel sounds. No palpable organomegaly. MUSCULOSKELETAL: No joint swelling or deformity. EXTREMITIES: No cyanosis, clubbing, or pedal edema. NEUROLOGICAL: Gross neurological examination did not reveal any focal deficits. SKIN: No rashes. no petechiae. - Labs CBC & Chem 7: 12/28/21 10:23 12/29/21 07:12 Labs: Abnormal Lab Results - Last 24 Hours (Table) 12/29/21 12/29/21 Range/Units 05:40 07:12 Anion Gap 7.60 L (10.00-18.00) mmol/L BUN/Creatinine Ratio 20.33 H (12.00-20.00) Ratio TSH 0.270 L (0.350-5.500) uIU/mL Coronavirus (PCR) Detected A (Not Detectd) Assessment and Plan Assessment: Acute asthma exacerbation, could be triggered by Covid infection Acute Covid infection with no pneumonia Asymptomatic bradycardia Hypertension Obesity with BMI of 31.2. Plan: Continue with IV Solu-Medrol 60 mg Check inflammatory markers Consult pulmonary services. Bronchodilators Consult fire assistant for bradycardia Labs and medication were reviewed.. Continue same treatment. Continue with symptomatic treatment. Resume home medication. Monitor lytes and vitals. DVT and GI prophylaxis. Further recommendations as per clinical course of the patient DVT prophylaxis: Subcutaneous GI Prophylaxis: Px PT/OT: Pending Prognosis is guarded
[2021-12-30 06:16] LABS: Glucose,Whole Blood 128 mg/dL (70-110)
[2021-12-30] MEDS: INSULIN ASPART (NovoLOG) 100 UNIT/ML VIAL SQ SCH ×2 (06:19→12:21)
[2021-12-30] MEDS: methylPREDNISolone SOD SUCCI 125 MG/2 ML VIAL IV SCH (06:23)
[2021-12-30] MEDS: PANTOPRAZOLE 40 MG TABLET PO SCH (06:25)
[2021-12-30 08:20] VITALS: RESP 17
[2021-12-30] MEDS: SYMBICORT 160-4.5 MCG INHALER INHALATION SCH (08:30)
[2021-12-30] MEDS: ALBUTEROL HFA INHALER INHALATION SCH ×2 (08:30→12:45)
[2021-12-30] MEDS ORDERED: HEPARIN SODIUM,PORCINE/PF 5,000 UNIT/0.5 ML SYRINGE SQ SCH (09:00)
[2021-12-30] MEDS ORDERED: FAMOTIDINE 20 MG/2 ML VIAL IV SCH (09:00)
[2021-12-30] MEDS: amLODIPine 10 MG TAB PO SCH (09:13)
[2021-12-30] MEDS: lisinopriL 10 MG TAB PO SCH (09:13)
[2021-12-30] MEDS: hydroCHLOROthiazide 25 MG TAB PO SCH (09:13)
[2021-12-30] MEDS: FLUTICASONE 50MCG/SPRAY NASAL 16GM EA NOSTRIL SCH (09:13)
[2021-12-30] MEDS: SERTRALINE 50 MG TAB PO SCH (09:13)
[2021-12-30] MEDS: ZINC SULFATE 220 MG CAP PO SCH (09:13)
[2021-12-30] MEDS: ASCORBIC ACID 500 MG TAB PO SCH (09:13)
[2021-12-30 10:14] VITALS: BP 122/76; PULSE 56; TEMP 97.6
[2021-12-30 11:12] LABS: Glucose,Whole Blood 135 mg/dL (70-110)
--- NOTE | 2021-12-30 11:20 | P.PN ---
Subjective This is a pleasant 76-year-old female past medical history significant for hypertension, asthma, dyslipidemia, mild non-obstructive coronary artery disease (per patient cardiac cath this year in [facility]). She followed with Dr. Altaf Walls in [place], [place]. She lived in [place] for 13 years recently moved back to [place]. We have been asked to see in consultation for bradycardia. Patient presented to the hospital on 12/28/2021 with complaints of worsening shortness of breath, cough, congestion. She tested positive for COVID-19 at home. Symptoms started about 2 days ago. She also has been having generalized body aches, fatigue. She was vaccinated x 2, no booster shots. She states this year in [place] she had an episode of bradycardia and was admitted for 24 hours for telemetry monitoring, she states her HR were in the 20s and they improved. All workup was normal the patient states. She also said this year in [place] she had episode of chest discomfort, she presented initially to her PCP which was Dr. Bharti Ayon and recommended evaluation in the ER. She ultimately underwent a cardiac catheterization which she was told was relatively normal with minor blockages, no stenting performed. 12/30/2021 Patient seen and examined at bedside, no acute distress. She states that her symptoms have significantly improved. She denies any chest pain or shortness of breath. Continues to have a cough. Denies any fever, chills, bodyaches. Her vital signs are stable. Telemetry reviewed patient maintaining sinus mechanism with heart rate in the 50s60s. EKG revealed sinus bradycardia with heart rate 56. Records still pending. Echocardiogram revealed EF 5055 percent, mild mitral regurgitation PHYSICAL EXAMINATION Vitals reviewed CONSTITUTIONAL: No apparent distress. HEENT: Head is normocephalic. Neck supple No JVD. CHEST EXAMINATION: Lungs are clear to auscultation. No chest wall tenderness is noted on palpation or with deep breathing. HEART EXAMINATION: Regular rate and rhythm. S1, S2 heard. No murmurs, gallops or rub. ABDOMEN: Soft, nontender. Positive bowel sounds. EXTREMITIES: 2+ peripheral pulses, no lower extremity edema and no calf tenderness. NEUROLOGIC EXAMINATION: Patient is awake, alert and oriented x3. ASSESSMENT Sinus bradycardia, asymptomatic Covid-19 infection Asthma exacerbation Shortness of breath Mild non-obstructive coronary artery disease (per patient cardiac cath this year in [facility]) Hypertension Dyslipidemia PLAN From a cardiology perspective, no further inpatient workup Continue home antihypertensive medications Discharge for discharge per primary and clearance of other consultants Recommend follow up outpatient with cardiology Nurse practitioner note has been reviewed by physician. Signing provider agrees with the documented findings, assessment, and plan of care. Objective - Vital Signs Vital signs: Vital Signs Temp 97.5 F L 12/30/21 02:00 Pulse 60 12/30/21 02:00 Resp 16 12/30/21 02:00 BP 123/76 12/30/21 02:00 Pulse Ox 99 12/30/21 02:00 FiO2 Intake & Output 12/29/21 12/30/21 12/30/21 18:59 06:59 18:59 Output Total 300 Balance -300 Output: Urine 300 Other: # Voids 2 - Labs CBC & Chem 7: 12/28/21 10:23 12/29/21 07:12 Labs: Abnormal Lab Results - Last 24 Hours (Table) 12/29/21 12/29/21 12/29/21 Range/Units 07:12 07:12 11:47 Anion Gap 7.60 L (10.00-18.00) mmol/L BUN/Creatinine Ratio 20.33 H (12.00-20.00) Ratio POC Glucose (mg/dL) 113 H (70-110) mg/dL Hemoglobin A1c 6.2 H (0.0-6.0) % TSH 0.270 L (0.350-5.500) uIU/mL 12/29/21 12/29/21 12/30/21 Range/Units 16:50 20:37 06:11 Anion Gap (10.00-18.00) mmol/L BUN/Creatinine Ratio (12.00-20.00) Ratio POC Glucose (mg/dL) 154 H 179 H 128 H (70-110) mg/dL Hemoglobin A1c (0.0-6.0) % TSH (0.350-5.500) uIU/mL
--- NOTE | 2021-12-30 13:41 | P.PN ---
Subjective Progress Note Date: 12/30/21 Principal diagnosis: Shortness of breath. 76-year-old female patient, known history of asthma, tested positive for Covid 19. The patient presented to the hospital because of worsening shortness of breath of 2 days' duration addition to some cough and congestion. No chest pain. No nausea or vomiting or abdominal pain. No altered mentation. No headaches. The patient's generalized body aches symptoms. She has been also feeling fatigued and tired. The vitals were all stable at the time of admission. The patient was afebrile. Blood work was done in emergency. D-dimer was at 0.61. Influenza screen was negative. The rest of the blood work including CBC and complete metabolic profile were negative. Coagulation profile was normal. The cardiac enzymes are also negative. The chest x-ray showed no acute cardiopulmonary process. The patient has a pulse ox of 97% on room air, 99% liters of oxygen by nasal cannula. She is relatively bradycardic with a heart rate of 46-54, asymptomatic. She is normotensive. She was given Decadron in the emergency department. Note that she had asthma as comorbid conditions in addition to hypertension. She is a lifetime nonsmoker. The patient has no maintenance respiratory medication for asthma. She uses Ventolin on an as- needed basis. She has been vaccinated 2 for Covid 19 and she has not received any of the booster shots. Progress note dated 12/30/2021. This is a patient who was seen by my partner yesterday in consultation. She seen again today in room 483. Currently, she is on room air. She is not gettin g any IV fluids. She did test positive for coronavirus. Her chest x-ray is normal. She is wondering about possible discharge today. She denies any shortness of breath, cough, wheezing, or phlegm production, and she generally feels well. The only lab today is a glucose of 135. Chest x-ray is normal. Objective - Vital Signs Vital signs: Vital Signs Temp 97.6 F 12/30/21 10:00 Pulse 56 L 12/30/21 10:00 Resp 17 12/30/21 10:00 BP 122/76 12/30/21 10:00 Pulse Ox 95 12/30/21 10:00 FiO2 Intake & Output 12/29/21 12/30/21 12/30/21 18:59 06:59 18:59 Output Total 300 Balance -300 Output: Urine 300 Other: # Voids 2 - Exam No acute distress, oriented 3. No conversational dyspnea, use of accessory muscles, or audible wheezing. HEENT examination is grossly unremarkable. Neck supple. Full range of motion. No adenopathy thyromegaly or neck vein distention. Cardiovascular examination reveals regular rhythm rate. S1-S2 normal. No S3 or S4. No discernible murmur noted. Heart rate 56 bpm. Lungs reveal mostly clear breath sounds. Minimal rhonchi. No distinct wheezes or crackles. Breath sounds equal. Room air saturation is 96%. Abdomen soft bowel sounds are heard. No masses or tenderness. Extremities are intact. No cyanosis clubbing or edema. Skin is without rash or lesion. Neurologic examination is brief but nonfocal. - Labs CBC & Chem 7: 12/28/21 10:23 12/29/21 07:12 Labs: Abnormal Lab Results - Last 24 Hours (Table) 12/29/21 12/29/21 12/29/21 Range/Units 07:12 16:50 20:37 POC Glucose (mg/dL) 154 H 179 H (70-110) mg/dL Hemoglobin A1c 6.2 H (0.0-6.0) % 12/30/21 12/30/21 Range/Units 06:11 11:11 POC Glucose (mg/dL) 128 H 135 H (70-110) mg/dL Hemoglobin A1c (0.0-6.0) % Assessment and Plan Assessment: Acute asthma exacerbation, improved. Acute coronavirus infection, without coronavirus associated pneumonia. Cough and shortness of breath, secondary to asthma exacerbation. Hypertension. Hyperlipidemia. Asymptomatic sinus bradycardia. Plan: Plan dated 12/31/2023. The patient's on appropriate medications. The patient is stable could be considered for possible discharge. We'll leave that up to the primary service. No additional recommendations are made. Clinically she looks well. She is on room air. Not receiving any IV fluids. There is no audible wheezing, use of accessory muscles, or conversational dyspnea. Labs, x-rays, and medications are reviewed. Time with Patient: Less than 30
== END 2021-12-30 14:58 | disposition home or self-care (01) | DRG 178 ==
LOC: EC 10:05 → 4SSUR 15:01
PROVIDERS: ADMIT Internal Medicine; ATTEND Internal Medicine
DX: U07.1 COVID-19 (principal); J45.901 Unspecified asthma with (acute) exacerbation; I25.10 Atherosclerotic heart disease of native coronary artery without angina pectoris; I10 Essential (primary) hypertension; E78.5 Hyperlipidemia, unspecified; R00.1 Bradycardia, unspecified; R79.1 Abnormal coagulation profile; E66.9 Obesity, unspecified; Z68.31 Body mass index [BMI] 31.0-31.9, adult; Z88.5 Allergy status to narcotic agent; Z79.899 Other long term (current) drug therapy
CPT/HCPCS: 36415; 71046; 80048; 80053; 83036; 83605; 83615; 83880; 84439; 84443; 84484; 85025; 85379; 85610; 85730; 86140; 87502; 87634; 87635; 93005; 93306; 94640; 96361; 96374; 96375; 99285

== ENCOUNTER → 2022-07-19 | Outpatient (CLI) | payer MEDICARE ==
--- NOTE | 2022-07-19 11:51 | US ---
EXAMINATION TYPE: US Aorta Screening DATE OF EXAM: 07/19/2022 COMPARISON: NONE CLINICAL INDICATION: Female, 76 years old with history of Z136 ENCOUNTER FOR CARDIO DISORDER; Screeni ng TECHNIQUE: Multiple sonographic images of the abdominal aorta are obtained. FINDINGS: EXAM MEASUREMENTS: Abdominal Aorta: Proximal: 2.1 x1.8 cm Mid: 1.5 in AP dimension. Transverse measurement obscured by bowel gas. Distal: 1.4 x 1.2 cm Bifurcation: 1.3 and 1.5 on the right and left sides, respectively. IMPRESSION: Borderline ectasia left common iliac artery at 1.5 cm. Otherwise, allowing for some limited detailed visualization of the mid abdominal aorta, no sonographic evidence for AAA.
--- NOTE | 2022-07-19 17:55 | BD ---
EXAMINATION TYPE: Axial Bone Density DATE OF EXAM: 07/19/2022 CLINICAL HISTORY: 76 years old Female. ICD-10 CODE: Z780 ASYMPTOMATIC [place] Height: 176.1 Weight: 61.5 FRAX RISK QUESTIONS: Alcohol (3 or more units per day): no Family History (Parent hip fracture): no Glucocorticoids (More than 3mos): no History of Fracture in Adulthood: foot Secondary Osteoporosis: 1. Type 1 Diabetes: no 2. Hyperthyroidism:no 3. Menopause before 45: no 4. Malnutrition: no 5. Chronic liver disease: no Rheumatoid Arthritis: no Current Tobacco Use: no RISK FACTORS HISTORY OF: Hip Fracture (Right/Left): no Spine Fracture: no History of Wrist Fracture: no Surgery to Spine/Hip(right/left)/Wrist (right/left): no Family History of Osteoporosis: no Active: no Diet low in dairy products/other sources of calcium: no Postmenopausal woman: yes Take estrogen and/or progesterone medications: no Lost more than 2 inches in height since high school: no Frequent falls: yes Poor Health: no Hyperparathyroidism: no Adrenal Insufficiency: no MEDICATIONS: Prednisone or other steroids: no Thyroid Medications: no Osteoporosis Medications: no Additional Medications: BP Meds, Cholesterol Meds, Reflux Meds, Anxiety Meds Additional History: EXAM MEASUREMENTS: Bone mineral densitometry was performed using the Thumb Reading System. Bone mineral density as measured about the Lumbar spine is: ----- L1-L4(G/cm2): 1.175 T Score Values are as follows: ----- L1: -0.1 ----- L2: 0.0 ----- L3: 0.2 ----- L4: -0.4 ----- L1-L4: 0.0 Z Score Values are as follows: ----- L1: 1.2 ----- L2: 1.2 ----- L3: 1.5 ----- L4: 0.9 ----- L1-L4: 1.2 Baseline Study Bone mineral density about the R hip (g/cm2): 0.946 Bone mineral density about the L hip (g/cm2): 0.945 T Score values are as follows: -----R Neck: -1.5 -----L Neck: -0.9 -----R Total: -0.5 -----L Total: -0.5 Z Score values are as follows: -----R Neck: 0.1 -----L Neck: 0.7 -----R Total: 0.9 -----L Total: 0.9 Baseline Study FRAX%s: The graph provided illustrates a 16.0% chance for a major osteoporotic fx and a 2.8% chance f or the hips probability for fx in 10 years time. IMPRESSION: Osteopenia (T Score between -2.5 and -1). There is slightly increased risk of fracture and the patient may be considered for treatment. Re-Screen 2-5 years. NOTE: T-SCORE=SD OF THE YOUNG ADULT MEAN.
== END | disposition home or self-care (01) ==
LOC: RADUSWWP 07:44
PROVIDERS: ATTEND Family Medicine
DX: Z12.31 Encounter for screening mammogram for malignant neoplasm of breast (principal); Z13.6 Encounter for screening for cardiovascular disorders; M85.89 Other specified disorders of bone density and structure, multiple sites; Z78.0 Asymptomatic menopausal state
CPT/HCPCS: 76706; 77063; 77067; 77080

== ENCOUNTER → 2022-08-25 | Outpatient (CLI) | payer MEDICARE ==
--- NOTE | 2022-08-25 11:40 | CT ---
EXAMINATION TYPE: CT right knee - RADHA Protocol CT DLP: 622 mGycm, Automated exposure control for dose reduction was used. DATE OF EXAM: 08/25/2022 11:15 AM COMPARISON: None CLINICAL INDICATION:Female, 77 years old with history of M25.561 pain R knee;, Right RADHA knee. TECHNIQUE: Axial images were obtained of the right knee . Additional coronal and sagittal reformatte d images and soft tissue and bone window were obtained for review. . Contrast used: mL of None Oral contrast used: None FINDINGS: Visualized portions of the pelvis demonstrate a few scattered colonic diverticula. There is mild oste ophyte formation of the hip acetabulum bilaterally. Evaluation of the knee demonstrates [id number] articulation of the patellofemoral joint most pronou nced in the lateral aspect. Additionally there is osteophyte formation of the femoral condyles and ti bial plateau with joint space tearing worse in the medial compartment. Findings have a similar appearance on the contralateral left knee which is only partially visualized. . There is some deformity with osseous outpouching along the medial femoral condyle. A fabella is prese nt. Visualized portions of the ankles are without acute fracture. Post surgical changes involving the fir st metatarsal and proximal phalanx of the first digit noted. Hardware is grossly intact. IMPRESSION: 1. End-stage right knee osteoarthrosis. No evidence of fracture. 2. Moderate severe left knee osteoarthrosis. No evidence of fracture. 3. Mild bilateral hip osteoarthrosis. 4. Colonic diverticulosis.
== END | disposition home or self-care (01) ==
LOC: RADCTMAIN 10:45
PROVIDERS: ATTEND Orthopaedic Surgery
DX: M17.0 Bilateral primary osteoarthritis of knee (principal); M16.0 Bilateral primary osteoarthritis of hip; K57.30 Diverticulosis of large intestine without perforation or abscess without bleeding

== ENCOUNTER 2022-09-08 08:07 | Day surgery (SDC) | payer MEDICARE ==
--- NOTE | 2022-09-08 07:40 | P.GSHP ---
History of Present Illness H&P Date: 09/08/22 CHIEF COMPLAINT: Colon screen HISTORY OF PRESENT ILLNESS: The patient is a 77-year-old female who presents for colon screen. Lower endoscopy was offered for further evaluation and management. PAST MEDICAL HISTORY: Please see list. PAST SURGICAL HISTORY: Please see list. MEDICATIONS: Please see list. ALLERGIES: Please see list. SOCIAL HISTORY: No illicit drug use FAMILY HISTORY: No reports of Crohn disease or ulcerative colitis. REVIEW OF ORGAN SYSTEMS: CONSTITUTIONAL: No reports of fevers or chills. PHYSICAL EXAM: VITAL SIGNS: Stable GENERAL: Well-developed pleasant in no acute distress. HEENT: No scleral icterus. Extraocular movements grossly intact. Moist buccal mucosa. NECK: Supple without lymphadenopathy. CHEST: Unlabored respirations. Equal bilateral excursions. CARDIOVASCULAR: Regular rate and rhythm. Distal 2+ pulses. ABDOMEN: Soft, nontender, nondistended. MUSCULOSKELETAL: No clubbing, cyanosis, or edema. ASSESSMENT: 1. Colon screen. PLAN: 1. Recommend proceeding with a lower endoscopy Past Medical History Past Medical History: Asthma, GERD/Reflux, Hypertension, Osteoarthritis (OA) Additional Past Medical History / Comment(s): hx of polyps History of Any Multi-Drug Resistant Organisms: None Reported Past Surgical History: Cholecystectomy, Tonsillectomy, Tubal Ligation Additional Past Surgical History / Comment(s): colonoscopy,egd Past Anesthesia/Blood Transfusion Reactions: No Reported Reaction Smoking Status: Former smoker, Light tobacco smoker - Past Family History Father Family Medical History: Cancer Brother(s) Family Medical History: Cancer Additional Family Medical History / Comment(s): lung Daughter(s) Additional Family Medical History / Comment(s): hodgkins lymphoma Medications and Allergies Home Medications Medication Instructions Recorded Confirmed Type Fluticasone Nasal [place] [Flonase 1 spray EA NOSTRIL DAILY 12/28/21 09/06/22 Hi story Nasal [place]] Pantoprazole Sodium [Protonix] 40 mg PO DAILY 12/28/21 09/06/22 History Pravastatin Sodium [Pravachol] 20 mg PO HS 12/28/21 09/06/22 History Sertraline HCl [Zoloft] 50 mg PO DAILY 12/28/21 09/06/22 History hydroCHLOROthiazide [Hydrodiuril] 25 mg PO DAILY 12/28/21 09/06/22 History lisinopriL [Prinivil] 10 mg PO DAILY 12/28/21 09/06/22 History Albuterol Inhaler [Ventolin Hfa 2 puff INHALATION RT-QID PRN #1 12/30/21 09/06/22 Rx Inhaler] each Celecoxib [CeleBREX] 200 mg PO DAILY 09/06/22 09/06/22 History Losartan Potassium 50 mg PO DAILY 09/06/22 09/06/22 History Allergies Allergy/AdvReac Type Severity Reaction Status Date / Time codeine Allergy Rash/Hives Verified 09/06/22 12:00
[~2022-09-08 08:07] MED LIST: LACTATED RINGERS 1,000 ML IV SCH
[2022-09-08] MEDS ORDERED: LACTATED RINGERS 1,000 ML IV ONE ×2 (08:35)
[2022-09-08 09:01] VITALS: RESP 16; TEMP 97.7
[2022-09-08] MEDS ORDERED: PROPOFOL 10 MG/ML 20 ML VIAL IV ONE (09:19)
--- NOTE | 2022-09-08 09:46 | P.PCN ---
Date of Procedure: 09/08/22 Description of Procedure: PREOPERATIVE DIAGNOSIS: Personal history of colon polyps Colonoscopy screening POSTOPERATIVE DIAGNOSIS: Tubular adenoma descending colon Tubular adenoma transverse colon Sigmoid diverticulosis Internal hemorrhoids, grade 3 OPERATION: Colonoscopy to the ileocecal valve and appendiceal orifice, cecum Colonoscopy with hot snare polypectomy SURGEON: Carmen Lorenzo MD. ANESTHESIA: MAC. INDICATIONS: The patient is an 77-year-old male who presents personal history of colon po lyps. Last colonoscopy over 5 years. Benefits and risks were described and informed consent was obtained. DESCRIPTION OF PROCEDURE: The patient had undergone GOLYETLY prep. The patient had been brought into the operating room and laid in the left lateral decubitus position. After adequate intravenous sedation, the rectum was examined with 2% lidocaine jelly. The prostate was unremarkable. External hemorrhoids were encountered. The rectal tone was within normal limits. No lesions were palpated in the rectal vault. An Olympus colonoscope was advanced until the cecum, ileocecal valve and ap pendiceal orifice were clearly viewed. The prep was fair. Sigmoid diverticulosis was encountered. Colonic polyps were found and removed. No evidence of focal colitis was found. Retroflexion of the scope demonstrated grade 3 internal hemorrhoids without active bleeding or inflammation. The colon was desufflated. The patient had tolerated the procedure well. Withdrawal time was over 6 minutes. FINDINGS: Aronchick preparation quality scale 3 (1-5) Internal hemorrhoids, grade 3 External hemorrhoids, grade 3. No arteriovenous malformations. Sigmoid diverticulosis Removal of 2 polyps: - Snare polypectomy at descending colon, 8 mm tubulovillous adenoma - Snare polypectomy and proximal colon, 4 mm adenoma No focal colitis. RECOMMENDATIONS: Repeat colonoscopy in 3 years, 2025 Plan - Discharge Summary Discharge Rx Participant: No New Discharge Prescriptions: Continue Pantoprazole Sodium [Protonix] 40 mg PO DAILY Sertraline HCl [Zoloft] 50 mg PO DAILY Pravastatin Sodium [Pravachol] 20 mg PO HS hydroCHLOROthiazide [Hydrodiuril] 25 mg PO DAILY Fluticasone Nasal [place] [Flonase Nasal [place]] 1 spray EA NOSTRIL DAILY lisinopriL [Prinivil] 10 mg PO DAILY Albuterol Inhaler [Ventolin Hfa Inhaler] 2 puff INHALATION RT-QID PRN #1 each PRN Reason: Shortness Of Breath Losartan Potassium 50 mg PO DAILY Celecoxib [CeleBREX] 200 mg PO DAILY Discharge Medication List Fluticasone Nasal [place] [Flonase Nasal [place]] 1 spray EA NOSTRIL DAILY 12/28/21 [History] Pantoprazole Sodium [Protonix] 40 mg PO DAILY 12/28/21 [History] Pravastatin Sodium [Pravachol] 20 mg PO HS 12/28/21 [History] Sertraline HCl [Zoloft] 50 mg PO DAILY 12/28/21 [History] hydroCHLOROthiazide [Hydrodiuril] 25 mg PO DAILY 12/28/21 [History] lisinopriL [Prinivil] 10 mg PO DAILY 12/28/21 [History] Albuterol Inhaler [Ventolin Hfa Inhaler] 2 puff INHALATION RT-QID PRN #1 each 12/30/21 [Rx] Celecoxib [CeleBREX] 200 mg PO DAILY 09/06/22 [History] Losartan Potassium 50 mg PO DAILY 09/06/22 [History] Follow up Appointment(s)/Referral(s): Carmen Lorenzo MD [STAFF PHYSICIAN] - As Needed Patient Instructions/Handouts: *Surgery [facility] - (Anesthesia) Discharge Instructions Outpatient Surgery, Diverticulosis (ED), Colorectal Polyps (GEN), Diverticulosis Diet (GEN) Activity/Diet/Wound Care/Special Instructions: Repeat colonoscopy 3 years, 2025 Discharge Disposition: HOME SELF-CARE
[2022-09-08 09:56] VITALS: PULSE 62
[2022-09-08 10:00] VITALS: BP 100/62
== END 2022-09-08 10:33 | disposition home or self-care (01) ==
LOC: ORWHC2ENDO 08:07
PROVIDERS: ATTEND Surgery Plastic and Reconstructive Surgery
DX: Z12.11 Encounter for screening for malignant neoplasm of colon (principal); D25.0 Submucous leiomyoma of uterus; K57.30 Diverticulosis of large intestine without perforation or abscess without bleeding; K64.2 Third degree hemorrhoids; J45.909 Unspecified asthma, uncomplicated; I10 Essential (primary) hypertension; K21.9 Gastro-esophageal reflux disease without esophagitis; M19.90 Unspecified osteoarthritis, unspecified site; Z86.010 Personal history of colon polyps; Z79.1 Long term (current) use of non-steroidal anti-inflammatories (NSAID); Z79.899 Other long term (current) drug therapy; Z98.51 Tubal ligation status; Z90.49 Acquired absence of other specified parts of digestive tract; Z90.89 Acquired absence of other organs; Z87.891 Personal history of nicotine dependence
CPT/HCPCS: 88305; 45385; J2704

== ENCOUNTER 2022-10-05 11:14 | Observation (INO) | payer MEDICARE ==
[2022-09-27 14:44] VITALS: BMI 32.8
[~2022-10-05 11:14] MED LIST changes: +ACETAMINOPHEN TAB 500 MG TAB PO PRN; +DEXAMETHASONE SOD PHOSPHATE 10 MG/ML 1 ML VIAL IV PRN; +DOCUSATE 100 MG CAP PO PRN; +FAMOTIDINE 20 MG/2 ML VIAL IVP PRN; +KETOROLAC 15 MG/ML 1 ML VIAL IVP PRN; +LIDOCAINE 1% (10MG/ML) FOR IV START INTRADERMA PRN; +ONDANSETRON 4 MG/2 ML VIAL IVP PRN; +ROPIVACAINE/EPI/CLONIDINE/KET 50 ML SYRINGE MISCELLANE PRN; +TRANEXAMIC 1,000 MG/100ML-NACL 1,000 MG in SALINE 1 100ML.BAG IV PRN; +TRANEXAMIC 1,000 MG/100ML-NACL 1,000 MG in SALINE 1 100ML.BAG IVPB PRN; +fentaNYL (PF) 50 MCG/ML 2 ML AMP IV PRN; +oxyCODONE ER 10 MG TAB.ER.12H PO PRN
[2022-10-05] MEDS ORDERED: LACTATED RINGERS 1,000 ML IV ONE ×2 (11:35→13:45)
[2022-10-05] MEDS ORDERED: MIDAZOLAM 2 MG/2 ML VIAL IVP ONE (12:26)
--- NOTE | 2022-10-05 12:45 | P.ANPRN ---
Procedure Note - Anesthesia - Nerve Block Performed Right Maggieck Single Time Out Performed: Yes Date of Procedure: 10/05/22 Procedure Start Time: 12:30 Procedure Stop Time: :31 Location of Patient: PreOp Indication: Acute Post-Operative Pain, Requested by Surgeon Sedation Type: Sedate with meaningful contact maintained Preparation: Sterile Prep Position: Supine Needle Types: Pajunk Needle Gauge: 21 Ultrasound used to visualize needle placement: Yes Ultrasound used to observe medication spread: Yes Resistance on Injection: Normal Image Stored and Saved: Yes Events: Uneventful and Well Tolerated (Ropivacaine 0.5% 25 mL plus dexamethasone 4 mg)
--- NOTE | 2022-10-05 12:45 | P.ANPRN ---
Procedure Note - Anesthesia - Nerve Block Performed Right Adductor Canal Single Time Out Performed: Yes Date of Procedure: 10/05/22 Procedure Start Time: : Procedure Stop Time: Location of Patient: PreOp Indication: Acute Post-Operative Pain, Requested by Surgeon Sedation Type: Sedate with meaningful contact maintained Preparation: Sterile Prep Position: Supine Needle Types: Pajunk Needle Gauge: 21 Ultrasound used to visualize needle placement: Yes Ultrasound used to observe medication spread: Yes Blood Aspirated: No Pain Paresthesia on Injection Noted: No Resistance on Injection: Normal Image Stored and Saved: Yes Events: Uneventful and Well Tolerated (Ropivacaine 0.5% 25 mL plus dexamethasone 4 mg)
[2022-10-05] MEDS ORDERED: PROPOFOL 10 MG/ML 20 ML VIAL IV ONE (13:40)
[2022-10-05] MEDS ORDERED: PHENYLEPHRINE-0.9% NACL SYG 1,000 MCG/10 ML SYRINGE ONE (13:40)
[2022-10-05] MEDS ORDERED: ROPIVACAINE 5 MG/ML 30 ML VIAL ONE (13:40)
[2022-10-05] MEDS ORDERED: fentaNYL (PF) 50 MCG/ML 2 ML AMP ONE (13:40)
[2022-10-05] MEDS ORDERED: SUCCINYLCHOLINE CHLORIDE 200 MG/10 ML VIAL IV ONE (13:40)
[2022-10-05] MEDS ORDERED: ePHEDrine 50 MG/ML 1 ML VIAL ONE (13:40)
[2022-10-05] MEDS ORDERED: GLYCOPYRROLATE 0.2 MG/ML 2 ML VIAL ONE (13:40)
[2022-10-05] MEDS ORDERED: ROCURONIUM 10 MG/ML (5 ML VIAL) IV ONE (13:40)
[2022-10-05] MEDS ORDERED: DEXAMETHASONE SOD PHOSPHATE 4 MG/ML 1 ML VIAL ONE (13:40)
[2022-10-05] MEDS ORDERED: TRANEXAMIC 1,000 MG/100ML-NACL PREMIX BAG ONE (13:40)
[2022-10-05] MEDS ORDERED: LIDOCAINE 2% INJ 20 MG/ML (2 ML VIAL) ONE (13:40)
[2022-10-05] MEDS ORDERED: NEOSTIGMINE 1 MG/ML 10 ML VIAL ONE (13:40)
[2022-10-05] MEDS ORDERED: HYDROmorphone 0.5 MG/0.5 ML SYRINGE IVP PRN ×3 (16:08)
[2022-10-05] MEDS ORDERED: NALOXONE 0.4 MG/ML 1 ML VIAL IV PRN (16:08)
[2022-10-05] MEDS ORDERED: ONDANSETRON 4 MG/2 ML VIAL IVP PRN (16:08)
[2022-10-05] MEDS ORDERED: hydrOXYzine pamoate 25 MG CAP PO PRN (16:08)
--- NOTE | 2022-10-05 16:11 | P.OP ---
Date of Procedure: 10/05/22 Preoperative Diagnosis: 1. Severe right knee osteoarthritis Postoperative Diagnosis: Same Procedure(s) Performed: Right total knee arthroplasty Implants: 1. Holger Triathlon CR Femur Size #2 2. Holger Triathlon [place] Tibial Base Size #2 3. Holger Triathlon CS poly Size #10 4. Holger Triathlon all poly patella, Size #28 Anesthesia: KEENA, regional Surgeon: Víctor Gill Enrobing Machine Feeder #1: Giorgi Rios Estimated Blood Loss (ml): 700 IV fluids (ml): 100 Pathology: none sent Condition: stable Disposition: PACU Indications for Procedure: I met with the patient preoperatively in the office setting and discussed treatment of their symptomatic knee arthritis. They failed a long course of nonsurgical treatment and elected to proceed with an elective total knee replacement. I discussed the potential risks and complications at length and gave them ample time to ask questions. Risks discussed included: risks from anesthesia, superficial site surgical infection, acute and/or chronic perip rosthetic joint infection, delayed wound healing, drainage, wound necrosis, instability, stiffness, stiffness requiring manipulation and/or revision surgery, damage to local blood vessels or nerves, aseptic loosening of the implants, extensor mechanism issues including disruption, patellar maltracking, avascular necrosis etc., continued or worsened knee pain, generalized dissatisfaction with surgical outcome, need for revision surgery, an inability to regain preinjury level of function, DVT, PE, other medical complications, and possibly loss of life or limb. The patient voiced their understanding that while these are the most common complications other less common complications are possible. They provided both their verbal and written consent to go forward with surgery. Description of Procedure: The patient was identified in preoperative holding and the correct operative extremity was verified and marked with a marker. I reviewed the consent form with the patient at length. All of their questions were answered. The patient was given a block by anesthesia. They were then brought back to the operating room. They were transferred onto the operating room table where a general anesthetic, preoperative antibiotics, and tranexamic acid were administered by anesthesia. A tourniquet was applied to the proximal aspect of the operative extremity. The contralateral extremity was padded under the heel and secured to the operating room table with a nonsterile blue towel and tape. The ipsilateral arm was carefully draped across the patient's chest and secured with a pillow and foam. A post was applied over the lateral aspect of the ipsilateral thigh and a bolster was placed under the ipsilateral foot. I verified that the operative extremity was stable and the knee was flexed to 90. The operative extremity was then placed in a leg apodaca, nonsterile drapes were applied, and the extremity was prepped and draped sterilely in the standard sterile fashion. Prior to starting surgery timeout was performed identifying the correct patient, operative extremity, and procedure. The leg was then elevated, exsanguinated with an Esmarch bandage, and the tourniquet was inflated. An anterior midline incision was made sharply with a scalpel. Once I had dissected deep to the superficial fascial layer medial and lateral flaps were elevated. A medial parapatellar arthrotomy was created. Upon opening the knee joint there were diffuse arthritic changes in all 3 compartments. The anterior horn of the medial meniscus were sharply released and a medial release was performed around the posterior medial corner of the knee to facilitate retractor placement. The fat pad was excised with electrocautery. The patella was found to be severely arthritic and a provisional cut was made with a sagittal saw to facilitate mobilization of the extensor mechanism during the procedure. Remnants of the ACL and PCL were then excised from the notch. 4 mm pins were then placed within the incision in the medial distal femur and proximal tibia. Arrays were applied to the pins and I verified they were completely tightened. The knee was then registered with the RoosterBi robot and manipulations in implant position were made to balance the knee and opitmize implant position. Using the Eitan robotic saw all cuts were made in accordance with our plan. After all bony fragments had been removed the cuts were verified with the planar probe. The tibia was then subluxed forward and sized. The knee was brought into flexion and a lamina electrical systems drafter was placed to allow removal of the meniscal remnants both medially and laterally as well as posterior osteophytes. Local anesthetic was then infiltrated around the joint capsule. Trial implants were then placed w ithin the knee. Range of motion and collateral ligament tension was then evaluated. Adjustments in implant size and position were then made accordingly. Once the knee was felt to be appropriately balanced the Eitan pins were removed. The patella was then recut, sized, and punched. A trial patellar button was then placed. With the trial components in place, the patella tracked midline. The femur was then drilled and the trial component removed. The trial tibial component was then appropriately rotated, pinned, and prepared for the keel. All trial components were then removed from the knee. The knee was thoroughly irrigated with pulsatile lavage. Cement was prepared via vacuum mixing in a bowl on the back table. I then hand pressurized cement into the femur and tibia and placed the implants beginning with the tibial base tray and poly liner, femoral component, and finally the patellar button. All extruded cement was removed including from the pin sites. Once the cement had hardened the knee was evaluated one final time with the final polyethylene liner in place. The knee had full extension and flexion and felt stable to varus and valgus stress throughout the arc of motion. The tourniquet was released and with the tourniquet down the patella tracked midline. All bleeders were controlled with electrocautery. The knee was then soaked for 3 minutes with a dilute Betadine soak. The knee was thoroughly irrigated using 3 L of sterile saline and pulsatile lavage. A deep drain was placed. The extensor mechanism was then reapproximated using pop off Vicryl sutures followed by a running barbed suture. The knee was then closed in layers with a 0 strata fix for the deep fascial layer, 2-0 strata fix for the superficial subcutaneous layer and Monocryl and Steri-Strips for the skin. A sterile dressing and drain sponge were applied. I verified that all instrument, sponge, and sharp counts were correct. The patient was then transferred off the operating room table, extubated, and brought to recovery having tolerated the procedure well. Giorgi Rios PA-C was required as a skilled clinic assistant due to the complexity of the procedure for patient positioning, draping, retraction, placement of hardware, and closure of wound. PLAN: The patient can weight-bear as tolerated on the operative extremity. DVT prophylaxis with aspirin 81 mg twice a day based on preoperative risk stratification. Follow-up in the office in 2 weeks for wound check and x-rays of the knee including an AP and lateral.
--- NOTE | 2022-10-05 16:52 | XR ---
EXAMINATION TYPE: XR knee limited RT DATE OF EXAM: 10/05/2022 COMPARISON: NONE HISTORY: 77-year-old female evaluation for postoperative abnormality in the alignment TECHNIQUE: 2 views FINDINGS: Surgical drain in place. Anterior soft tissue swelling with scattered soft tissue air as we ll as intra-articular air related to recent operation. Images show placement of right total knee arth roplasty. No periprosthetic fracture. Alignment grossly anatomic. IMPRESSION: Uncomplicated postoperative appearance right total knee arthroplasty.
[2022-10-05] MEDS: LACTATED RINGERS 1,000 ML IV SCH (17:05)
[2022-10-05] MEDS: ASPIRIN 81 MG PO SCH (20:45)
[2022-10-05] MEDS: SENNOSIDES-DOCUSATE SODIUM 1 EACH TAB PO SCH (20:45)
[2022-10-06] MEDS: LACTATED RINGERS 1,000 ML IV SCH ×2 (02:50→04:56)
[2022-10-06] MEDS: HYDROcodone/APAP 5-325MG 1 EACH TAB PO PRN ×3 (04:52→23:46)
--- NOTE | 2022-10-06 08:26 | P.DS ---
Providers Expected date of discharge: 10/06/22 Attending physician: Víctor Gill Consults: 10/05/22 16:08 Consult Physician Routine Consulting Provider: Richa Hutchison Consult Reason/Comments: medical management Do you want consulting provider notified?: Yes Primary care physician: Robin Bañuelos [facility] Course: This is a 77-year-old female who has been followed in our office by Dr. Gill for continued complaints of right knee pain due to right knee osteoarthritis. Treatment options were discussed, and patient elected to undergo a right total knee arthroplasty. Patient was seen pre-operatively by Dr. Bañuelos, cardiology and cleared for surgery. Patient underwent a right total knee arthroplasty on 10/05/[address] Gill. The procedure was performed without complication or sequelae. The patient is doing fairly well postoperatively. Vital signs and labs are stable on postoperative day #1. Patient was examined bedside this morning with Dr. Gill. Patient states she is overall doing very well and the pain in her knee is well-controlled. Patient is awaiting evaluation by physical therapy this morning to return home. Patient is comfortable being discharged home today. Patient has no new complaints this morning. On examination, the patient is sitting up in bed in no apparent distress. She is alert and orientated 3. On inspection of the right knee, there is a clean, dry, intact surgical dressing in place with no bleeding or drainage through the dressing. Patient has good strength and ROM of the right ankle and toes. Motor and sensory function is intact of the right lower extremity. The dorsalis pedis pulse is easily palpable, the right lower extremity is warm and well perfused with brisk capillary refill. Calf is soft and non-tender to palpation. Hemovac drain removed bedside this morning during examination. Patient is discharged home with home health care today in good condition, pending medical clearance. Patient will follow-up in the office at [facility] in 2 weeks. Please see med rec for accurate list of discharge medication. Plan - Discharge Summary Discharge Rx Participant: No New Discharge Prescriptions: New Aspirin 81 mg PO BID 30 Days #60 tab HYDROcodone/APAP 5-325MG [[place] 5-325] 1 - 2 tab PO Q6HR PRN 7 Days #32 tab PRN Reason: Pain Omeprazole 40 mg PO DAILY 30 Days #30 cap Diclofenac Sodium [Voltaren] 75 mg PO BID 30 Days #60 tab Docusate [Colace] 100 mg PO BID #60 capsule No Action Pantoprazole Sodium [Protonix] 40 mg PO QAM Sertraline HCl [Zoloft] 50 mg PO QAM Pravastatin Sodium [Pravachol] 20 mg PO HS hydroCHLOROthiazide [Hydrodiuril] 25 mg PO DAILY Fluticasone Nasal [place] [Flonase Nasal [place]] 1 spray EA NOSTRIL DAILY lisinopriL [Prinivil] 10 mg PO QAM Losartan Potassium 50 mg PO QAM Celecoxib [CeleBREX] 200 mg PO DAILY Albuterol Inhaler [Ventolin Hfa Inhaler] 2 puff INHALATION QID Discharge Medication List Fluticasone Nasal [place] [Flonase Nasal [place]] 1 spray EA NOSTRIL DAILY 12/28/21 [History] Pantoprazole Sodium [Protonix] 40 mg PO QAM 12/28/21 [History] Pravastatin Sodium [Pravachol] 20 mg PO HS 12/28/21 [History] Sertraline HCl [Zoloft] 50 mg PO QAM 12/28/21 [History] hydroCHLOROthiazide [Hydrodiuril] 25 mg PO DAILY 12/28/21 [History] lisinopriL [Prinivil] 10 mg PO QAM 12/28/21 [History] Celecoxib [CeleBREX] 200 mg PO DAILY 09/06/22 [History] Losartan Potassium 50 mg PO QAM 09/06/22 [History] Albuterol Inhaler [Ventolin Hfa Inhaler] 2 puff INHALATION QID 09/27/22 [History] Aspirin 81 mg PO BID 30 Days #60 tab 10/06/22 [Rx] Diclofenac Sodium [Voltaren] 75 mg PO BID 30 Days #60 tab 10/06/22 [Rx] Docusate [Colace] 100 mg PO BID #60 capsule 10/06/22 [Rx] HYDROcodone/APAP 5-325MG [[place] 5-325] 1 - 2 tab PO Q6HR PRN 7 Days #32 tab 10/06/22 [Rx] Omeprazole 40 mg PO DAILY 30 Days #30 cap 10/06/22 [Rx] Follow up Appointment(s)/Referral(s): Víctor Gill MD [Medical Doctor] - 2 Weeks Activity/Diet/Wound Care/Special Instructions: Weight bear to tolerance on operative extremity with a walker. Keep operative dressing in place until follow-up appointment in the office. Call the office if dressing becomes saturated or falls off. May shower over dressing. Take pain medication as prescribed. Take aspirin 81mg twice a day x 4 weeks for blood clot prevention. Follow-up in the office in two weeks at [facility]. Call the office with any questions or concerns, Discharge Disposition: HOME WITH HOME HEALTH SERVICES
[2022-10-06] MEDS: ASPIRIN 81 MG PO SCH ×2 (09:19→21:20)
[2022-10-06 10:50] LABS: Basophils # (A) 0.02 X 10*3/uL (0.00-0.10); Basophils % (A) 0.1 %; Eosinophils # (A) 0 X 10*3/uL (0.04-0.35); Eosinophils % (A) 0 %; HCT 37.1 % (37.2-46.3); HGB 11.9 d/dL (12.0-15.0); Lymphocytes # (A) 0.71 X 10*3/uL (0.90-5.00); Lymphocytes % (A) 4.8 %; MCH 27.2 pg (27.0-32.0); MCHC 32.1 d/dL (32.0-37.0); MCV 84.9 FL (80.0-97.0); Monocytes # (A) 0.87 X 10*3/uL (0.20-1.00); Monocytes % (A) 5.9 %; NRBC Per 100 WBC 0 X 10*3/uL (0.00-0.01); Neutrophils # (A) 13.06 X 10*3/uL (1.80-7.70); Neutrophils % (A) 88.8 %; Platelet Count 167 X 10*3/uL (140-440); RBC 4.37 X 10*6/uL (4.10-5.20); RDW 13.5 % (11.5-14.5); WBC 14.72 X 10*3/uL (4.50-10.00)
--- NOTE | 2022-10-06 13:43 | P.CONS ---
History of Present Illness - Reason for Consult Consult date: 10/06/22 Medical management - History of Present Illness History of present illness; patient is a 77-year-old lady with past medical history significant for hypertension, depression who came to the hospital for e lective right knee total arthroplasty. Patient has been following up outpatient with orthopedics for right knee pain. All conservative measures had failed. Patient was scheduled for right knee arthroplasty on 10/05/22. Postoperatively internal medicine team were consulted for medical management REVIEW OF SYSTEMS: CONSTITUTIONAL: No fever, no malaise, no fatigue. HEENT: No recent visual problems or hearing problems. Denied any sore throat. CARDIOVASCULAR: No chest pain, orthopnea, PND, no palpitations, no syncope. PULMONARY: No shortness of breath, no cough, no hemoptysis. GASTROINTESTINAL: No diarrhea, no nausea, no vomiting, no abdominal pain. NEUROLOGICAL: No headaches, no weakness, no numbness. HEMATOLOGICAL: Denies any bleeding or petechiae. GENITOURINARY: Denies any burning micturition, frequency, or urgency. MUSCULOSKELETAL/RHEUMATOLOGICAL: Right knee pain ENDOCRINE: Denies any polyuria or polydipsia. The rest of the 14-point review of systems is negative. PHYSICAL EXAMINATION: GENERAL: The patient is alert and oriented x3, not in any acute distress. Well developed, well nourished. HEENT: Pupils are round and equally reacting to light. EOMI. No scleral icterus. No conjunctival pallor. Normocephalic, atraumatic. No pharyngeal erythema. No thyromegaly. CARDIOVASCULAR: S1 and S2 present. No murmurs, rubs, or gallops. PULMONARY: Chest is clear to auscultation, no wheezing or crackles. ABDOMEN: Soft, nontender, nondistended, normoactive bowel sounds. No palpable organomegaly. MUSCULOSKELETAL: Right knee surgical incision seen, no erythema EXTREMITIES: No cyanosis, clubbing, or pedal edema. NEUROLOGICAL: Gross neurological examination did not reveal any focal deficits. SKIN: No rashes. Assessment and plan Right knee osteoarthritis status post right total knee arthroplasty Hypertension Hyperlipidemia Depression Monitor vital signs Monitor CBC Monitor CMP Currently patient is normotensive, hold all blood pressure medications for now. Continue pain medicine per orthopedic Continue DVT prophylaxis per orthopedics Follow-up on PTOT recommendations Continue pravastatin Continue Zoloft Labs and medication were reviewed.. Continue same treatment. Continue with symptomatic treatment. Resume home medication. Monitor labs and vitals. DVT and GI prophylaxis. Further recommendations as per clinical course of the patient Dictation was produced using [employer] dictation software. please excuse any grammatical, word or spelling errors. Past Medical History Past Medical History: Asthma, Hypertension, Osteoarthritis (OA) Additional Past Medical History / Comment(s): Hx Polyps. Hard of hearing. History of Any Multi-Drug Resistant Organisms: None Reported Past Surgical History: Cholecystectomy, Joint Replacement, Tonsillectomy, Tubal Ligation Additional Past Surgical History / Comment(s): Colonoscopy, EGD, right TKR, rt bunionectomy Past Anesthesia/Blood Transfusion Reactions: No Reported Reaction Past Psychological History: No Psychological Hx Reported, Anxiety Smoking Status: Never smoker Past Alcohol Use History: None Reported Additional Past Alcohol Use History / Comment(s): Quit smoking 40 yrs ago. Past Drug Use History: None Reported - Past Family History Daughter(s) Family Medical History: Cancer Additional Family Medical History / Comment(s): Hodgkins Lymphoma. Brother(s) Family Medical History: Cancer Additional Family Medical History / Comment(s): Lung cancer. Father Family Medical History: Cancer Medications and Allergies Home Medications Medication Instructions Recorded Confirmed Type Fluticasone Nasal [place] [Flonase 1 spray EA NOSTRIL DAILY 12/28/21 10/05/22 History Nasal [place]] Pantoprazole Sodium [Protonix] 40 mg PO QAM 12/28/21 10/05/22 History Pravastatin Sodium [Pravachol] 20 mg PO HS 12/28/21 10/05/22 History Sertraline HCl [Zoloft] 50 mg PO QAM 12/28/21 10/05/22 History hydroCHLOROthiazide [Hydrodiuril] 25 mg PO DAILY 12/28/21 10/05/22 History lisinopriL [Prinivil] 10 mg PO QAM 12/28/21 10/05/22 History Celecoxib [CeleBREX] 200 mg PO DAILY 09/06/22 10/05/22 History Losartan Potassium 50 mg PO QAM 09/06/22 10/05/22 History Albuterol Inhaler [Ventolin Hfa 2 puff INHALATION QID 09/27/22 10/05/22 History Inhaler] Aspirin 81 mg PO BID 30 Days #60 tab 10/06/22 Rx Diclofenac Sodium [Voltaren] 75 mg PO BID 30 Days #60 tab 10/06/22 Rx Docusate [Colace] 100 mg PO BID #60 capsule 10/06/22 Rx HYDROcodone/APAP 5-325MG [[place] 1 - 2 tab PO Q6HR PRN 7 Days #32 10/06/22 Rx 5-325] tab Omeprazole 40 mg PO DAILY 30 Days #30 cap 10/06/22 Rx Allergies Allergy/AdvReac Type Severity Reaction Status Date / Time codeine Allergy Rash/Hives Verified 10/05/22 11:51 Physical Exam Vitals: Vital Signs Temp Pulse Pulse Resp BP BP Pulse Ox 10/06/22 07:32 97.7 F 58 L 16 107/66 94 L 10/06/22 01:25 98.3 F 84 18 100/63 98 10/05/22 18:50 97.7 F 76 18 101/64 95 10/05/22 18:16 65 97/59 94 L 10/05/22 18:01 72 103/69 90 L 10/05/22 17:47 67 105/69 96 10/05/22 17:43 97.4 F L 71 17 102/65 96 10/05/22 17:33 83 110/60 96 10/05/22 17:00 79 16 122/78 97 10/05/22 16:45 81 16 118/53 99 10/05/22 16:30 63 16 125/65 99 10/05/22 16:15 87 16 128/59 99 10/05/22 16:03 97 F L 85 16 143/64 98 Intake and Output 10/05/22 10/06/22 10/06/22 22:59 06:59 14:59 Intake Total 750 Output Total 100 60 Balance 650 -60 Intake: IV 300 Intake, IV Titration 450 Amount Lactated Ringers 1,000 ml 400 @ 100 mls/hr IV .Q10H [facility] Rx#:[id number] ceFAZolin 2 gm In Sodium 50 Chloride 0.9% 50 ml @ 100 mls/hr IVPB Q8H [facility] Rx#: [id number] Output: Drainage 60 Right 60 Estimated Blood Loss 100 Other: Voiding Method Bedpan Weight 80.286 kg Results CBC & Chem 7: 10/06/22 07:18 Labs: Abnormal Lab Results - Last 24 Hours (Table) 10/06/22 Range/Units 07:18 WBC 14.72 H (4.50-10.00) X 10*3/uL Hgb 11.9 L (12.0-15.0) d/dL Hct 37.1 L (37.2-46.3) % Neutrophils # 13.06 H (1.80-7.70) X 10*3/uL Lymphocytes # 0.71 L (0.90-5.00) X 10*3/uL Eosinophils # 0 L (0.04-0.35) X 10*3/uL
[2022-10-06] MEDS: ALBUTEROL NEBULIZED 2.5 MG/3 ML INHALATION SCH ×2 (16:03→22:05)
[2022-10-06] MEDS ORDERED: PRAVASTATIN SODIUM 20 MG TAB PO SCH (21:00)
[2022-10-06] MEDS: SENNOSIDES-DOCUSATE SODIUM 1 EACH TAB PO SCH (21:19)
[2022-10-07] MEDS: LACTATED RINGERS 1,000 ML IV SCH (02:25)
[2022-10-07 08:26] VITALS: BP 122/52; RESP 16; TEMP 97.4
[2022-10-07] MEDS ORDERED: SERTRALINE 50 MG TAB PO SCH (09:00)
[2022-10-07] MEDS ORDERED: PANTOPRAZOLE 40 MG TABLET PO SCH (09:00)
[2022-10-07] MEDS ORDERED: LOSARTAN 50 MG TAB PO SCH (09:00)
[2022-10-07] MEDS ORDERED: lisinopriL 10 MG TAB PO SCH (09:00)
[2022-10-07] MEDS ORDERED: FLUTICASONE 50MCG/SPRAY NASAL 16GM EA NOSTRIL SCH (09:00)
[2022-10-07] MEDS ORDERED: hydroCHLOROthiazide 25 MG TAB PO SCH (09:00)
[2022-10-07] MEDS: ALBUTEROL NEBULIZED 2.5 MG/3 ML INHALATION SCH ×2 (09:06→12:05)
[2022-10-07] MEDS: ASPIRIN 81 MG PO SCH (09:36)
[2022-10-07] MEDS: HYDROcodone/APAP 5-325MG 1 EACH TAB PO PRN (09:37)
[2022-10-07 12:17] VITALS: PULSE 62
--- NOTE | 2022-10-07 13:57 | P.PN ---
Subjective Progress Note Date: 10/07/22 This patient is a 77- year old female who is status post right total knee arthroplasty on 10/05/22. She is postoperative day #2. The patient is examined with Dr. Gill. Discharge was held yesterday due to physical therapy recommendations. Per nursing in the patient, she did much better with physical therapy today. She is comfortable returning home today. No new complaints. Objective - Vital Signs Vital signs: Vital Signs Temp 97.4 F L 10/07/22 07:35 Pulse 62 10/07/22 12:17 Resp 16 10/07/22 07:35 BP 122/52 10/07/22 07:35 Pulse Ox 94 L 10/07/22 07:35 FiO2 Intake & Output 10/06/22 10/07/22 10/07/22 18:59 06:59 18:59 Intake Total 850 Output Total 60 Balance 790 Intake: Oral 850 Output: Drainage 60 Right 60 Other: Voiding Method Bedpan Toilet # Voids 4 - Exam On examination, patient is lying in bed in no apparent distress. She is alert and oriented 3. On inspection of the right knee, there is a clean, dry, intact surgical dressing in place with no bleeding or drainage to the dressing. Motor and sensory function is intact of the right lower extremity. Right lower extremity warm and well perfused. Calf is soft and nontender to palpation. - Labs CBC & Chem 7: 10/06/22 07:18 Assessment and Plan Assessment: Status-post right total knee arthroplasty on 10/05/22. Postoperative day #2. Plan: - Patient has been cleared by physical therapy for discharge home today. Please see discharge orders. We will plan to see the patient in the office in 2 weeks.
--- NOTE | 2022-10-07 14:37 | P.PN ---
Subjective Progress Note Date: 10/07/22 patient is a 77-year-old lady with past medical history significant for hypertension, depression who came to the hospital for elective right knee total arthroplasty. Patient has been following up outpatient with orthopedics for right knee pain. All conservative measures had failed. Patient was scheduled for right knee arthroplasty on 10/05/22. Postoperatively internal medicine team were consulted for medical management 10/07. Patient seen and examined. No acute issues overnight REVIEW OF SYSTEMS: CONSTITUTIONAL: No fever, no malaise,. CARDIOVASCULAR: No chest pain, no palpitations, no syncope. PULMONARY: No shortness of breath, no cough, GASTROINTESTINAL: No diarrhea, no nausea, no vomiting, no abdominal pain. NEUROLOGICAL: No headaches, no weakness, PHYSICAL EXAMINATION: GENERAL: The patient is alert and oriented x3, not in any acute distress. Well developed, well nourished. HEENT: Pupils are round and equally reacting to light. EOMI. No scleral icterus. No conjunctival pallor. Normocephalic, atraumatic. No pharyngeal erythema. No thyromegaly. CARDIOVASCULAR: S1 and S2 present. No murmurs, rubs, or gallops. PULMONARY: Chest is clear to auscultation, no wheezing or crackles. ABDOMEN: Soft, nontender, nondistended, normoactive bowel sounds. No palpable organomegaly. MUSCULOSKELETAL: No joint swelling or deformity. Right knee surgical incision seen EXTREMITIES: No cyanosis, clubbing, or pedal edema. NEUROLOGICAL: Gross neurological examination did not reveal any focal deficits. SKIN: No rashes. Assessment and plan Right knee osteoarthritis status post right total knee arthroplasty Hypertension Hyperlipidemia Depression Monitor vital signs Continue pain management continue DVT prophylaxis per orthopedics Patient medically stable for discharge Labs and medication were reviewed.. Continue same treatment. Continue with symptomatic treatment. Resume home medication. Monitor labs and vitals. DVT and GI prophylaxis. Further recommendations as per clinical course of the patient Dictation was produced using [employer] dictation software. please excuse any grammatical, word or spelling errors. Objective - Vital Signs Vital signs: Vital Signs Temp 97.4 F L 10/07/22 07:35 Pulse 62 10/07/22 12:17 Resp 16 10/07/22 07:35 BP 122/52 10/07/22 07:35 Pulse Ox 94 L 10/07/22 07:35 FiO2 Intake & Output 10/06/22 10/07/22 10/07/22 18:59 06:59 18:59 Intake Total 850 Output Total 60 Balance 790 Intake: Oral 850 Output: Drainage 60 Right 60 Other: Voiding Method Bedpan Toilet # Voids 4 - Labs CBC & Chem 7: 10/06/22 07:18
== END 2022-10-07 13:00 | disposition home health service (06) ==
LOC: OR 11:14 → 4SSUR 11:15
PROVIDERS: ADMIT Orthopaedic Surgery; ATTEND Orthopaedic Surgery
DX: M17.11 Unilateral primary osteoarthritis, right knee (principal); I10 Essential (primary) hypertension; E78.5 Hyperlipidemia, unspecified; J45.909 Unspecified asthma, uncomplicated; K21.9 Gastro-esophageal reflux disease without esophagitis; F32.A Depression, unspecified; H91.90 Unspecified hearing loss, unspecified ear; F41.9 Anxiety disorder, unspecified; Z79.1 Long term (current) use of non-steroidal anti-inflammatories (NSAID); Z79.899 Other long term (current) drug therapy; Z88.5 Allergy status to narcotic agent; Z90.49 Acquired absence of other specified parts of digestive tract; Z98.51 Tubal ligation status; Z98.890 Other specified postprocedural states; Z87.891 Personal history of nicotine dependence; Z80.7 Family history of other malignant neoplasms of lymphoid, hematopoietic and related tissues; Z80.1 Family history of malignant neoplasm of trachea, bronchus and lung; Z82.49 Family history of ischemic heart disease and other diseases of the circulatory system
CPT/HCPCS: 0055T; 27447; 64447; 64999; 85025; 94640